=== PATIENT | female | born 1955 | race African-American/Black ===

== ENCOUNTER 2019-07-16 13:23 | Emergency (ER) | payer BC, OTHER ==
--- NOTE | 2019-07-16 13:38 | EDM.PDOC ---
ED HPI GENERAL MEDICAL PROBLEM - General Chief Complaint: Chest Pain Stated Complaint: CHEST PAIN Time Seen by Provider: 07/16/19 13:37 Source of Information: Reports: Patient History Limitations: Reports: No Limitations - History of Present Illness INITIAL COMMENTS - FREE TEXT/NARRATIVE: Patient is a 64-year-old female who is complaining of having substernal chest pain which is been ongoing for the past 8 days. Pain is worse when she takes deep breath and when she lays down at night. There is no exertional component of this. She does not feel short of breath diaphoretic nauseous. She has had no vomiting or any bloody or tarry stools. She has had no swelling to her calves or ankles. She has not had similar symptoms in the past. When this started 8 days ago she did have 1 shaking chill but none since. She has taken nothing for current symptoms. Duration: Day(s): (Eight) Location: Reports: Chest Quality: Reports: Sharp, Stabbing Severity: Severe Improves with: Reports: Movement Worsens with: Reports: Breathing, Other (Worse symptoms with laying down at night and rest.) Associated Symptoms: Reports: Chest Pain. 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 ED EXAM, GENERAL - Physical Exam Exam: See Below Free Text/Narrative:: Exam: See Below Exam Limited By: No Limitations Head: Atraumatic Neck: Normal Inspection. No: Carotid Bruit, Lymphadenopathy (R) Respiratory/Chest: No Respiratory Distress, Lungs Clear, Normal Breath Sounds, No Accessory Muscle Use. No: Chest Non-Tender Cardiovascular: Normal Peripheral Pulses, Regular Rate, Rhythm, No Edema, No JVD. No chest wall tenderness. GI/Abdominal: Normal Bowel Sounds, Tender. No: Non-Tender, Splenomegaly Back Exam: Normal Inspection. No: CVA Tenderness (R) Extremities: Normal Inspection. No: No Pedal Edema Neurological: Alert, Oriented, Normal Cognition Psychiatric: Normal Affect Skin Exam: Warm Lymphatic: No Adenopathy EKG INTERPRETATION Rhythm: NSR [place]: Normal QRS: Normal ST-T: Normal QT: Normal Course - Vital Signs Text/Narrative:: Patient's d-dimer was elevated at 1.04. Chest x-ray and other labs were within normal limits. Patient was sent for CTA of her chest which shows no sign of pulmonary embolus or pneumonia. I am discharging her home with a diagnosis of pleurisy. Since she is allergic to NSAIDs I will give her some prednisone. I will also give her a few Aurora's. Last Recorded V/S: Last Vital Signs Temp 36.7 C 07/16/19 13:27 Pulse 98 07/16/19 13:27 Resp 18 07/16/19 13:27 BP 148/98 H 07/16/19 13:27 Pulse Ox 100 07/16/19 13:27 - Orders/Labs/Meds Orders: Active Orders 24 hr Category Date Time Status Sodium Chloride 0.9% [Saline Flush] Med 07/16/19 15:13 Active 10 ml FLUSH ASDIRECTED PRN Sodium Chloride 0.9% [Saline Flush] Med 07/16/19 15:13 Active 2.5 ml FLUSH ASDIRECTED PRN Saline Lock Insert [OM.PC] Stat Oth 07/16/19 15:13 Ordered Medication Orders Sodium Chloride (Saline Flush) 10 ml FLUSH ASDIRECTED PRN PRN Reason: Keep Vein Open Sodium Chloride (Saline Flush) 2.5 ml FLUSH ASDIRECTED PRN PRN Reason: Keep Vein Open Labs: Laboratory Tests 07/16/19 07/16/19 07/16/19 Range/Units 13:30 13:30 13:30 WBC 5.52 (4.0-11.0) K/uL RBC 4.48 (4.30-5.90) M/uL Hgb 13.4 (12.0-16.0) g/dL Hct 41.4 (36.0-46.0) % MCV 92.4 (80.0-98.0) fL MCH 29.9 (27.0-32.0) pg MCHC 32.4 (31.0-37.0) g/dL RDW Std Deviation 49.5 (28.0-62.0) fl RDW Coeff of Girish 15 (11.0-15.0) % Plt Count 266 (150-400) K/uL MPV 9.90 (7.40-12.00) fL Neut % (Auto) 48.4 (48.0-80.0) % Lymph % (Auto) 39.7 (16.0-40.0) % [place] % (Auto) 9.4 (0.0-15.0) % Eos % (Auto) 2.0 (0.0-7.0) % Baso % (Auto) 0.5 (0.0-1.5) % Neut # (Auto) 2.7 (1.4-5.7) K/uL Lymph # (Auto) 2.2 (0.6-2.4) K/uL [place] # (Auto) 0.5 (0.0-0.8) K/uL Eos # (Auto) 0.1 (0.0-0.7) K/uL Baso # (Auto) 0.0 (0.0-0.1) K/uL Nucleated RBC % 0.0 /100WBC Nucleated RBCs # 0 K/uL D-Dimer, Quantitative 1.02 H (0.0-0.50) mg/L FEU Sodium 142 (136-145) mmol/L Potassium 3.9 (3.5-5.1) mmol/L Chloride 108 H (98-107) mmol/L Carbon Dioxide 27.4 (21.0-32.0) mmol/L BUN 18 (7.0-18.0) mg/dL Creatinine 0.9 (0.6-1.0) mg/dL Est Cr Clr Drug Dosing 46.55 mL/min Estimated GFR (MDRD) > 60.0 ml/min Glucose 91 (74-106) mg/dL Calcium 9.4 (8.5-10.1) mg/dL Total Bilirubin 0.5 (0.2-1.0) mg/dL AST 26 (15-37) IU/L ALT 25 (14-63) IU/L Alkaline Phosphatase 114 (46-116) U/L Troponin I < 0.050 (0.000-0.056) ng/mL Total Protein 7.5 (6.4-8.2) g/dL Albumin 3.7 (3.4-5.0) g/dL Globulin 3.8 (2.6-4.0) g/dL Albumin/Globulin Ratio 1.0 (0.9-1.6) Meds: Medications Generic Name Dose Route Start Last Admin Trade Name Freq PRN Reason Stop Dose Admin Sodium Chloride 10 ml 07/16/19 15:13 Saline Flush FLUSH ASDIRECTED PRN Keep Vein Open Sodium Chloride 2.5 ml 07/16/19 15:13 Saline Flush FLUSH ASDIRECTED PRN Keep Vein Open Discontinued Medications Generic Name Dose Route Start Last Admin Trade Name Freq PRN Reason Stop Dose Admin Iopamidol 50 ml 07/16/19 15:53 07/16/19 15:53 Isovue Multipack-370 (76%) IVPUSH 07/16/19 15:54 50 ml ONETIME STA Administration Departure - Departure Time of Disposition: 16:39 Disposition: Home, Self-Care 01 Condition: Good Clinical Impression: Atypical chest pain, Pleurisy Instructions: Pleurisy Referrals: PCP,None [Primary Care Provider] - Forms: ED Department Discharge Additional Instructions: The following information is given to patients seen in the emergency department who are being discharged to home. This information is to outline your options for follow-up care. We provide all patients seen in our emergency department with a follow-up referral. The need for follow-up, as well as the timing and circumstances, are variable depending upon the specifics of your emergency department visit. If you don't have a primary care physician on staff, we will provide you with a referral. We always advise you to contact your personal physician following an emergency department visit to inform them of the circumstance of the visit and for follow-up with them and/or the need for any referrals to a consulting specialist. The emergency department will also refer you to a specialist when appropriate. This referral assures that you have the opportunity for follow-up care with a specialist. All of these measure are taken in an effort to provide you with optimal care, which includes your follow-up. Under all circumstances we always encourage you to contact your private physician who remains a resource for coordinating your care. When calling for follow-up care, please make the office aware that this follow-up is from your recent emergency room visit. If for any reason you are refused follow-up, please contact the [facility] Emergency Department at and asked to speak to the emergency department charge nurse. Care Plan Goals: Return to ER if worse or any exertional symptoms. Follow-up with PCP if symptoms continue. Sepsis Event Note - Evaluation Sepsis Screening Result: No Definite Risk - Focused Exam Vital Signs: Vital Signs Temp Pulse Resp BP Pulse Ox 07/16/19 13:27 36.7 C 98 18 148/98 H 100 Date Exam was Performed: 07/16/19 Time Exam was Performed: 16:38 - My Orders Last 24 Hours: My Active Orders 07/16/19 15:13 Sodium Chloride 0.9% [Saline Flush] 10 ml FLUSH ASDIRECTED PRN Sodium Chloride 0.9% [Saline Flush] 2.5 ml FLUSH ASDIRECTED PRN Saline Lock Insert [OM.PC] Stat - Assessment/Plan Last 24 Hours: My Active Orders 07/16/19 15:13 Sodium Chloride 0.9% [Saline Flush] 10 ml FLUSH ASDIRECTED PRN Sodium Chloride 0.9% [Saline Flush] 2.5 ml FLUSH ASDIRECTED PRN Saline Lock Insert [OM.PC] Stat
[2019-07-16 14:22] LABS: BLOOD UREA NITROGEN,BUN 18 mg/dL (7.0-18.0); CARBON DIOXIDE,CO2 27.4 mmol/L (21.0-32.0); CHLORIDE,CL 108 mmol/L (98-107); GLUCOSE RANDOM 91 mg/dL (74-106); POTASSIUM,K 3.9 mmol/L (3.5-5.1); SODIUM,NA 142 mmol/L (136-145)
[2019-07-16] MEDS ORDERED: Sodium Chloride 0.9% 2.5 ML Syringe FLUSH PRN (15:13)
[2019-07-16] MEDS ORDERED: Sodium Chloride 0.9% 10 ML Syringe FLUSH PRN (15:13)
[2019-07-16] MEDS ORDERED: Iopamidol 755 MG/ML 500 ML Multipack Bottle IVPUSH STA ×2 (15:53→15:59)
--- NOTE | 2019-07-16 16:13 | CT ---
CT chest Technique: Multiple axial sections through the chest were obtained. Intravenous contrast was utilized. Study performed as a pulmonary angiogram protocol. Findings: Pulmonary arteries are well opacified. No filling defects are seen to indicate pulmonary embolism. Low density lesion is noted within the right lobe of the liver which has Hounsfield unit measurements of a cyst measuring 1.4 cm in size. No pericardial thickening is seen. Aorta shows no aneurysm. Mediastinum shows no adenopathy. Lungs are clear with no acute parenchymal change. Small portion of the lung base is not included on study. Bone window settings were reviewed shows no acute osseous finding. Impression: 1. No findings of pulmonary embolism. 2. Nothing acute is seen on other portions of the CT chest. Diagnostic code #1 This report was dictated in MDT
--- NOTE | 2019-07-16 16:22 | CR ---
Chest: 2 views of the chest were obtained. Comparison: No prior chest imaging is available. Heart size is normal. Tortuous thoracic aorta is seen. Lungs are clear with no acute parenchymal change. Mild scoliosis is noted within the spine. Minimal scattered degenerative change is seen. Impression: 1. Spine findings. 2. Nothing acute is appreciated on 2 view chest x-ray. Diagnostic code #2 This report was dictated in MDT
== END 2019-07-16 16:50 | disposition home or self-care (01) ==
LOC: MW.ED 13:23
DX: R09.1 Pleurisy (principal); Z88.6 Allergy status to analgesic agent
CPT/HCPCS: 36415; 71046; 71275; 80053; 84484; 85025; 85379; 93005; 99285; Q9967

== ENCOUNTER 2021-02-11 11:30 | Inpatient (IN) | payer BC ==
--- NOTE | 2021-02-11 11:45 | EDM.PDOC ---
ED HPI GENERAL MEDICAL PROBLEM - General Chief Complaint: Respiratory Problem Stated Complaint: SOB/ REFERRAL FROM [facility] Time Seen by Provider: 02/11/21 11:30 Source of Information: Reports: Patient History Limitations: Reports: No Limitations - History of Present Illness INITIAL COMMENTS - FREE TEXT/NARRATIVE: HISTORY AND PHYSICAL: History of present illness: Patient is a 65 year old female who presents to the ED with complaints of SOB since being diagnosed with COVID-19 10+ days ago. She states she was supposed to be off of quarantine yesterday, but doesn't feel any better. Continues to have SOB. Today while at [facility] with her PCP, they were concerned because her O2 was 89% on RA. She has a history of DVT, not currently on any blood thinners. Patient denies any fever, chills, headache, change in vision, syncope or near syncope. Denies any chest pain, back pain, shortness of breath or cough. Denies any abdominal pain, nausea, vomiting, diarrhea, constipation or dysuria. Has not noted any blood in urine or stool. Patient has been eating and drinking appropriately. No recent travel or sick contacts. Review of systems: As per history of present illness and below otherwise all systems reviewed and negative. Past medical history: As per history of present illness and as reviewed below otherwise noncontributory. Surgical history: As per history of present illness and as reviewed below otherwise noncontributory. Social history: See social history for further information Family history: As per history of present illness and as reviewed below otherwise noncontributory. Physical exam: General: Well developed and well nourished 65 year old black female. Alert and orientated x 3. Nontoxic in appearance and in no acute distress. Vital signs are stable and have been reviewed by me. Nursing notes were reviewed. HEENT: Atraumatic, normocephalic, pupils equal and reactive bilaterally, negative for conjunctival pallor or scleral icterus, mucous membranes dry, TMs normal bilaterally, throat clear, neck supple, nontender, trachea midline. No drooling or trismus noted. No meningeal signs. No hot potato voice noted. Lungs: Diminished bases to auscultation bilaterally. No wheezes, rales, or rhonchi. Chest nontender. Moderate work of breathing with activity, no accessory muscles used. Dry nonproductive cough is noted. Heart: S1S2, regular rate and rhythm without overt murmur, gallops, or rubs. No JVD. No peripheral edema Abdomen: Soft, nondistended, nontender. Normoactive bowel sounds. Negative for masses or costovertebral tenderness. Skin: Intact, warm, dry. No lesions or rashes noted. Hematologic: No petechiae or purpra. Mucosa appropriate color and normal nail bed color and refill. Extremities: Atraumatic, moves all extremities per self without difficulty or deficits, negative for cords or calf pain. Neurovascular unremarkable. Neuro: Awake, alert, oriented. Cranial nerves II through XII unremarkable. Cerebellum unremarkable. Motor and sensory unremarkable throughout. Exam nonfocal. Psychiatric: Mood and affect are appropriate. Normal thought process. Answering questions appropriately. Please note that the patient was seen and evaluated during the 2019 SARS-CoV-2 novel coronavirus pandemic period. Community viral transmission is ongoing at time of this encounter and the emergency department is operating under pandemic response procedures. Medical Decision Making: Patient is a 65 year old female who presents to the ED with known + COVID -19, whom is supposed to be off quarantine, but continued to feel SOB. She initially presented to [facility], but due to her oxygen saturation being 89% on RA, they recommended she come to the ED for further evaluation and possible admission. She states she hasn't felt any improvement and SOB has worsened in the past few days. Lung sounds are diminished bilaterally. Her oxygen upon arrival is 95% on RA but does appear dyspneic. Chest x-ray shows COVID pneumonia, bilateral. Elevated D.Dimer above 2.0, will do a CT chest to rule out PE. Vital signs remain stable. CT chest is suboptimal bolus timing. Pulmonary vascular density is higher than pulmonary arterial contrast density. No significant clot centrally. Peripheral vessels are nondiagnostic assessed. COVID-19 pneumonia. Multiple presumed cysts in the liver. Further characterization with contrast CT or ultrasound recommended if there is further clinical concern. Incomplete visualization of complex cystic lesion right kidney. Recommend ultrasound or contrast CT for further characterization. When patient is ambulatory in room, her oxygen drops to 86% on RA. When at rest, she does increase to 93-95% on RA. I have talked with the patient about today's findings, in addition to providing specific details for plan of care. Dr Albert was consulted on this case, she is agreeable to keeping this patient for further care and admission. Remdesivir ordered. Education completed. 1500: Dr Albert here to evaluate patient for admission. We will continue to monitor until patient is transferred to Med/Surg Diagnostics: CBC, CMP, Troponin, EKG, D.Dimer, COVID, CXR, CT Chest Therapeutics: Dexamethasone, Remdesivir Impression: COVID pneumonia Hypoxia Cystic liver, incidental finding Plan: Inpatient admission to Med/Surg Definitive disposition and diagnosis as appropriate pending reevaluation and review of above. - Related Data Allergies Allergy/AdvReac Type Severity Reaction Status Date / Time aspirin Allergy Swelling Verified 02/11/21 11:46 NSAIDS (Non-Steroidal Allergy Swelling Verified 02/11/21 11:46 Anti-Inflamma Home Meds: Home Meds . 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 ED EXAM, GENERAL - Physical Exam Exam: See Below (See dictation) Course - Vital Signs Last Recorded V/S: Last Vital Signs Temp 96.4 F L 02/11/21 11:44 Pulse 102 H 02/11/21 13:12 Resp 22 H 02/11/21 13:12 BP 135/98 H 02/11/21 13:12 Pulse Ox 95 02/11/21 13:12 - Orders/Labs/Meds Orders: Active Orders 24 hr Category Date Time Status Admission Status [Patient Status] [ADT] Stat ADT 02/11/21 14:59 Active UA RFX RAMIRO AND CULT IF INDIC [URIN] Stat Lab 02/11/21 11:34 Ordered Remdesivir 200 mg Med 02/11/21 15:30 Active Sodium Chloride 0.9% [Normal Saline] 250 ml IV ONETIME Medication Orders Remdesivir 200 mg/ Sodium (Chloride) 250 mls @ 250 mls/hr IV ONETIME ONE Stop: 02/11/21 16:29 Labs: Laboratory Tests 02/11/21 02/11/21 02/11/21 Range/Units 11:50 11:50 11:50 WBC 7.07 (4.0-11.0) K/uL RBC 4.73 (4.30-5.90) M/uL Hgb 14.1 (12.0-16.0) g/dL Hct 41.7 (36.0-46.0) % MCV 88.2 (80.0-98.0) fL MCH 29.8 (27.0-32.0) pg MCHC 33.8 (31.0-37.0) g/dL RDW Std Deviation 47.8 (28.0-62.0) fl RDW Coeff of Girish 15 (11.0-15.0) % Plt Count 386 (150-400) K/uL MPV 10.10 (7.40-12.00) fL Neut % (Auto) 77.1 (48.0-80.0) % Lymph % (Auto) 14.0 L (16.0-40.0) % [place] % (Auto) 7.6 (0.0-15.0) % Eos % (Auto) 1.0 (0.0-7.0) % Baso % (Auto) 0.3 (0.0-1.5) % Neut # (Auto) 5.5 (1.4-5.7) K/uL Lymph # (Auto) 1.0 (0.6-2.4) K/uL [place] # (Auto) 0.5 (0.0-0.8) K/uL Eos # (Auto) 0.1 (0.0-0.7) K/uL Baso # (Auto) 0.0 (0.0-0.1) K/uL Nucleated RBC % 0.0 /100WBC Nucleated RBCs # 0 K/uL D-Dimer, Quantitative 2.09 H (0.0-0.50) mg/L FEU Sodium 139 (136-145) mmol/L Potassium 3.8 (3.5-5.1) mmol/L Chloride 99 (98-107) mmol/L Carbon Dioxide 29.6 (21.0-32.0) mmol/L BUN 16 (7.0-18.0) mg/dL Creatinine 1.1 H (0.6-1.0) mg/dL Est Cr Clr Drug Dosing 52.81 mL/min Estimated GFR (MDRD) > 60.0 ml/min Glucose 138 H (74-106) mg/dL Calcium 8.8 (8.5-10.1) mg/dL Total Bilirubin 0.7 (0.2-1.0) mg/dL AST 110 H (15-37) IU/L ALT 77 H (14-63) IU/L Alkaline Phosphatase 148 H (46-116) U/L Troponin I < 0.050 (0.000-0.056) ng/mL Total Protein 7.3 (6.4-8.2) g/dL Albumin 2.9 L (3.4-5.0) g/dL Globulin 4.4 H (2.6-4.0) g/dL Albumin/Globulin Ratio 0.7 L (0.9-1.6) SARS-CoV-2 RNA (ENRIQUE) (NEGATIVE) 02/11/21 Range/Units 12:00 WBC (4.0-11.0) K/uL RBC (4.30-5.90) M/uL Hgb (12.0-16.0) g/dL Hct (36.0-46.0) % MCV (80.0-98.0) fL MCH (27.0-32.0) pg MCHC (31.0-37.0) g/dL RDW Std Deviation (28.0-62.0) fl RDW Coeff of Girish (11.0-15.0) % Plt Count (150-400) K/uL MPV (7.40-12.00) fL Neut % (Auto) (48.0-80.0) % Lymph % (Auto) (16.0-40.0) % [place] % (Auto) (0.0-15.0) % Eos % (Auto) (0.0-7.0) % Baso % (Auto) (0.0-1.5) % Neut # (Auto) (1.4-5.7) K/uL Lymph # (Auto) (0.6-2.4) K/uL [place] # (Auto) (0.0-0.8) K/uL Eos # (Auto) (0.0-0.7) K/uL Baso # (Auto) (0.0-0.1) K/uL Nucleated RBC % /100WBC Nucleated RBCs # K/uL D-Dimer, Quantitative (0.0-0.50) mg/L FEU Sodium (136-145) mmol/L Potassium (3.5-5.1) mmol/L Chloride (98-107) mmol/L Carbon Dioxide (21.0-32.0) mmol/L BUN (7.0-18.0) mg/dL Creatinine (0.6-1.0) mg/dL Est Cr Clr Drug Dosing mL/min Estimated GFR (MDRD) ml/min Glucose (74-106) mg/dL Calcium (8.5-10.1) mg/dL Total Bilirubin (0.2-1.0) mg/dL AST (15-37) IU/L ALT (14-63) IU/L Alkaline Phosphatase (46-116) U/L Troponin I (0.000-0.056) ng/mL Total Protein (6.4-8.2) g/dL Albumin (3.4-5.0) g/dL Globulin (2.6-4.0) g/dL Albumin/Globulin Ratio (0.9-1.6) SARS-CoV-2 RNA (ENRIQUE) POSITIVE H (NEGATIVE) Meds: Medications Generic Name Dose Route Start Last Admin Trade Name Comfort PRN Reason Stop Dose Admin Remdesivir 200 mg/ Sodium 250 mls @ 250 mls/hr 02/11/21 15:30 Chloride IV 02/11/21 16:29 ONETIME ONE Discontinued Medications Generic Name Dose Route Start Last Admin Trade Name Deoq PRN Reason Stop Dose Admin Dexamethasone 6 mg 02/11/21 15:05 Dexamethasone 4 Mg/Ml Sdv IVPUSH 02/11/21 15:06 ONETIME ONE Remdesivir 200 mg/ Sodium 250 mls @ 250 mls/hr 02/11/21 15:04 Chloride IV 02/11/21 15:05 ONETIME ONE Iopamidol 100 ml 02/11/21 14:10 02/11/21 14:10 Iopamidol 755 Mg/Ml 500 Ml Multipack Bottle IVPUSH 02/11/21 14:11 100 ml ONETIME STA Administration Departure - Departure Time of Disposition: 15:31 Disposition: Admitted As Inpatient 68 Clinical Impression: Pneumonia due to COVID-19 virus, Hypoxia - Discharge Information Referrals: PCP,None [Primary Care Provider] - Forms: ED Department Discharge Sepsis Event Note (ED) - Focused Exam Vital Signs: Vital Signs Temp Pulse Resp BP Pulse Ox 02/11/21 13:12 102 H 22 H 135/98 H 95 02/11/21 11:44 96.4 F L 132 H 22 H 140/89 95 - My Orders Last 24 Hours: My Active Orders 02/11/21 11:34 UA RFX RAMIRO AND CULT IF INDIC [URIN] Stat 02/11/21 14:59 Admission Status [Patient Status] [ADT] Stat 02/11/21 15:30 Remdesivir 200 mg Sodium Chloride 0.9% [Normal Saline] 250 ml IV ONETIME - Assessment/Plan Last 24 Hours: My Active Orders 02/11/21 11:34 UA RFX RAMIRO AND CULT IF INDIC [URIN] Stat 02/11/21 14:59 Admission Status [Patient Status] [ADT] Stat 02/11/21 15:30 Remdesivir 200 mg Sodium Chloride 0.9% [Normal Saline] 250 ml IV ONETIME
--- NOTE | 2021-02-11 12:03 | PCM.EKG ---
#1 Interpretation EKG Interpretation Comments: EKG performed 02/11/2021 shows sinus tachycardia, HR 122,ME 145,axis -18, comparedto07/16/2019 QRS configuration and T configuration are not exactly the same and may be due to lead palcement and artirfact on this tracing. Impression - no obvious acute injury
--- NOTE | 2021-02-11 12:32 | CR ---
INDICATION: Shortness of breath; COVID-19 positive. COMPARISON: Two-view chest July 16, 2019. TECHNIQUE: Portable AP chest. FINDINGS: Normal size cardiac silhouette. Patchy areas of alveolar consolidation diffusely involving both lungs; diagnostic of COVID-19 pneumonia. No pneumothorax or pleural effusion. IMPRESSION: COVID-19 pneumonia bilateral. Dictated by Estephanie Collier MD @ 02/11/2021 12:31:45 PM (Electronically Signed)
[2021-02-11 12:52] LABS: BLOOD UREA NITROGEN,BUN 16 mg/dL (7.0-18.0); CARBON DIOXIDE,CO2 29.6 mmol/L (21.0-32.0); CHLORIDE,CL 99 mmol/L (98-107); GLUCOSE RANDOM 138 mg/dL (74-106); POTASSIUM,K 3.8 mmol/L (3.5-5.1); SODIUM,NA 139 mmol/L (136-145)
[2021-02-11] MEDS ORDERED: Iopamidol 755 MG/ML 500 ML Multipack Bottle IVPUSH STA (14:10)
--- NOTE | 2021-02-11 14:38 | CT ---
INDICATION: Shortness of breath and cough. History of previous blood clots. Elevated D-dimer. Positive COVID test. COMPARISON: Plain film same date. TECHNIQUE: 100 mL Isovue-370 IV contrast. FINDINGS: Suboptimal bolus timing. Pulmonary vascular density is higher than pulmonary arterial contrast density. No significant clot centrally. Peripheral vessels are nondiagnostic assessed. Aortic caliber is normal. A 13 mm low-attenuation focus segment 7 subdiaphragmatic right liver. Multiple larger more obviously cystic lesions in the left liver. Coarse calcification central left liver. Incomplete visualization complex cystic lesion ventral lateral right kidney. Bilateral diffuse ground-glass and patchy reticular opacities in both lungs consistent with COVID-19 pneumonia. No mass or nodule. No pneumothorax or effusion. IMPRESSION: 1. Nondiagnostic study for pulmonary embolism due to bolus timing. 2. COVID-19 pneumonia. 3. Multiple presumed cysts in the liver. Further characterization with contrast CT or ultrasound recommended if there is further clinical concern. 4. Incomplete visualization of complex cystic lesion right kidney. Recommend ultrasound or contrast CT for further characterization. Please note that all CT scans at this facility use dose modulation, iterative reconstruction, and/or weight-based dosing when appropriate to reduce radiation dose to as low as reasonably achievable. Dictated by Ady Castro MD @ 02/11/2021 2:37:50 PM (Electronically Signed)
[2021-02-11] MEDS ORDERED: REMDESIVIR 200 MG in Sodium Chloride 0.9% 250 ML IV ONE (15:04)
[2021-02-11] MEDS ORDERED: Dexamethasone 4 MG/ML SDV IVPUSH ONE (15:05)
[2021-02-11] MEDS: REMDESIVIR 200 MG in Sodium Chloride 0.9% 250 ML IV ONE ×2 (15:33→15:34)
[2021-02-11] MEDS ORDERED: Ondansetron 4 MG/2 ML SDV IVPUSH PRN (15:43)
[2021-02-11] MEDS ORDERED: Albuterol/Ipratropium 3.0-0.5 MG/3 ML Neb Soln NEB PRN (15:43)
[2021-02-11] MEDS ORDERED: Acetaminophen 325 MG Tab PO PRN (15:43)
--- NOTE | 2021-02-11 15:43 | PCM.HP.2 ---
H&P History of Present Illness - General Date of Service: 02/11/21 Admit Problem/Dx: Admission Diagnosis/Problem Admission Diagnosis/Problem Hypoxia - History of Present Illness Initial Comments - Free Text/Narative: 65-year-old female with a history of provoked DVT presents to the ER complaining of fatigue and worsening shortness of breath positive Covid test 10 days ago. Patient states she completed quarantine yesterday but she has become progressively more short of breath. Patient has a nonproductive cough which is worsened. Patient states she was seen by her primary care provider at [facility] and was sent to the ER for concerns of O2 saturation of 89%. Patient denies fever, chills, abdominal pain, diarrhea vomiting, chest pain, palpitations or changes in taste or smell. Patient denies changes in appetite. As per patient, in 2013 or 2014 patient injured her foot requiring surgery and later developed a DVT. Patient is currently not anticoagulated. Patient also has a history of hypertension and hypercholesterolemia for which she takes hydrochlorothiazide and a statin. ER course: Patient presents with decreased breath sounds at the bases O2 saturation of 95% on room air but appeared dyspneic. With ambulation patient's oxygen dropped to 86% on room air. CXR shows Covid pneumonia bilaterally. 0.0. CT angio is suboptimal for embolism. Bilateral: Pneumonia. Multiple presumed cysts in the liver with recommended follow-up contrast CT ultrasound. Incomplete visualization of complex cystic lesion right kidney recommendation for ultrasound or contrast CT. EKG: Sinus tachycardia, pulse 122, no acute ischemic injury. Vital signs: T 96.4, P102, RR 22, BP 135/98, 95% O2 saturation. WBC 7, Hgb 14, platelet 386, D- dimer 2.09, sodium 139, potassium 3.8, chloride 99, bicarb 29.6, BUN 16, creati nine 1.1, glucose 138, calcium 8.8, AST 110, ALT 77, alk phos 148, troponin negative. SARS-CoV-2 positive. Therapy: Patient received dexamethasone, first dose of remdesivir. Past medical history: History of provoked DVT, hypertension, hypercholesterolemia. Medications: Pravastatin, hydrochlorothiazide. Allergies: Aspirin, NSAIDs, opiates. Social history: Denies smoking. Denies illicit drug use. Occasionally drinks wine. 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 CODE STATUS: Full code - Related Data Allergies/Adverse Reactions: Allergies Allergy/AdvReac Type Severity Reaction Status Date / Time aspirin Allergy Swelling Verified 02/11/21 11:46 NSAIDS (Non-Steroidal Allergy Swelling Verified 02/11/21 11:46 Anti-Inflamma Home Medications: Home Meds . [No Known Home Meds] 02/11/21 [History] Past Medical History Cardiovascular History: Reports: High Cholesterol [employer] History: Reports: Ectopic - Infectious Disease History Infectious Disease History: Reports: Mumps - Past Surgical History Female Surgical History: Reports: Hysterectomy Musculoskeletal Surgical History: Reports: Other (See Below) Other Musculoskeletal Surgeries/Procedures:: right foot surgery Social & Family History - Family History Family Medical History: No Pertinent Family History - Tobacco Use Second Hand Smoke Exposure: No - Caffeine Use Caffeine Use: Reports: None - Recreational Drug Use Recreational Drug Use: No H&P Review of Systems - Review of Systems: Review Of Systems: See Below General: Reports: Weakness, Fatigue. Denies: Fever, Chills HEENT: Denies: Headaches, Sore Throat Pulmonary: Reports: Shortness of Breath, Cough. Denies: Wheezing, Pleuritic Chest Pain, Sputum Cardiovascular: Reports: Dyspnea on Exertion. Denies: Chest Pain, Palpitations, Edema Gastrointestinal: Denies: Abdominal Pain, Constipation, Diarrhea, Decreased Appetite, Nausea, Vomiting Genitourinary: Denies: Dysuria, Frequency, Burning Musculoskeletal: Denies: Leg Pain, Joint Pain, Joint Swelling Skin: Denies: Cyanosis, Rash Psychiatric: Denies: Confusion Neurological: Denies: Confusion, Dizziness, Headache, Numbness, Paresthesia Hematologic/Lymphatic: Denies: Anemia, Easy Bleeding, Easy Bruising Exam - Exam Exam: See Below - Vital Signs Vital Signs: Last Vital Signs Temp 96.4 F L 02/11/21 11:44 Pulse 102 H 02/11/21 13:12 Resp 22 H 02/11/21 13:12 BP 135/98 H 02/11/21 13:12 Pulse Ox 95 02/11/21 13:12 Weight: 220 lb - Exam General: Alert, Oriented, Cooperative HEENT: Conjunctiva Clear, EACs Clear Neck: Supple, Trachea Midline Lungs: Decreased Breath Sounds. No: Wheezing Cardiovascular: Regular Rate, Regular Rhythm GI/Abdominal Exam: Normal Bowel Sounds, Soft, Non-Tender, No Organomegaly. No: Rebound Back Exam: Normal Inspection. No: CVA Tenderness (L), CVA Tenderness (R) Extremities: Normal Inspection, Normal Range of Motion, Non-Tender, No Pedal Edema. No: Dameon's Sign Peripheral Pulses: 2+: Dorsalis Pedis (L), Dorsalis Pedis (R) Skin: Warm, Dry, Intact Neurological: Cranial Nerves Intact, Reflexes Equal Bilateral, Strength Equal Bilateral, Normal Speech, Normal Tone - Patient Data Lab Results Last 24 hrs: Laboratory Results - last 24 hr 02/11/21 02/11/21 02/11/21 Range/Units 11:50 11:50 11:50 WBC 7.07 (4.0-11.0) K/uL RBC 4.73 (4.30-5.90) M/uL Hgb 14.1 (12.0-16.0) g/dL Hct 41.7 (36.0-46.0) % MCV 88.2 (80.0-98.0) fL MCH 29.8 (27.0-32.0) pg MCHC 33.8 (31.0-37.0) g/dL RDW Std Deviation 47.8 (28.0-62.0) fl RDW Coeff of Girish 15 (11.0-15.0) % Plt Count 386 (150-400) K/uL MPV 10.10 (7.40-12.00) fL Neut % (Auto) 77.1 (48.0-80.0) % Lymph % (Auto) 14.0 L (16.0-40.0) % Faulkner % (Auto) 7.6 (0.0-15.0) % Eos % (Auto) 1.0 (0.0-7.0) % Baso % (Auto) 0.3 (0.0-1.5) % Neut # (Auto) 5.5 (1.4-5.7) K/uL Lymph # (Auto) 1.0 (0.6-2.4) K/uL Faulkner # (Auto) 0.5 (0.0-0.8) K/uL Eos # (Auto) 0.1 (0.0-0.7) K/uL Baso # (Auto) 0.0 (0.0-0.1) K/uL Nucleated RBC % 0.0 /100WBC Nucleated RBCs # 0 K/uL D-Dimer, Quantitative 2.09 H (0.0-0.50) mg/L FEU Sodium 139 (136-145) mmol/L Potassium 3.8 (3.5-5.1) mmol/L Chloride 99 (98-107) mmol/L Carbon Dioxide 29.6 (21.0-32.0) mmol/L BUN 16 (7.0-18.0) mg/dL Creatinine 1.1 H (0.6-1.0) mg/dL Est Cr Clr Drug Dosing 52.81 mL/min Estimated GFR (MDRD) > 60.0 ml/min Glucose 138 H (74-106) mg/dL Calcium 8.8 (8.5-10.1) mg/dL Total Bilirubin 0.7 (0.2-1.0) mg/dL AST 110 H (15-37) IU/L ALT 77 H (14-63) IU/L Alkaline Phosphatase 148 H (46-116) U/L Troponin I < 0.050 (0.000-0.056) ng/mL Total Protein 7.3 (6.4-8.2) g/dL Albumin 2.9 L (3.4-5.0) g/dL Globulin 4.4 H (2.6-4.0) g/dL Albumin/Globulin Ratio 0.7 L (0.9-1.6) SARS-CoV-2 RNA (ENRIQUE) (NEGATIVE) 02/11/21 Range/Units 12:00 WBC (4.0-11.0) K/uL RBC (4.30-5.90) M/uL Hgb (12.0-16.0) g/dL Hct (36.0-46.0) % MCV (80.0-98.0) fL MCH (27.0-32.0) pg MCHC (31.0-37.0) g/dL RDW Std Deviation (28.0-62.0) fl RDW Coeff of Girish (11.0-15.0) % Plt Count (150-400) K/uL MPV (7.40-12.00) fL Neut % (Auto) (48.0-80.0) % Lymph % (Auto) (16.0-40.0) % Faulkner % (Auto) (0.0-15.0) % Eos % (Auto) (0.0-7.0) % Baso % (Auto) (0.0-1.5) % Neut # (Auto) (1.4-5.7) K/uL Lymph # (Auto) (0.6-2.4) K/uL Faulkner # (Auto) (0.0-0.8) K/uL Eos # (Auto) (0.0-0.7) K/uL Baso # (Auto) (0.0-0.1) K/uL Nucleated RBC % /100WBC Nucleated RBCs # K/uL D-Dimer, Quantitative (0.0-0.50) mg/L FEU Sodium (136-145) mmol/L Potassium (3.5-5.1) mmol/L Chloride (98-107) mmol/L Carbon Dioxide (21.0-32.0) mmol/L BUN (7.0-18.0) mg/dL Creatinine (0.6-1.0) mg/dL Est Cr Clr Drug Dosing mL/min Estimated GFR (MDRD) ml/min Glucose (74-106) mg/dL Calcium (8.5-10.1) mg/dL Total Bilirubin (0.2-1.0) mg/dL AST (15-37) IU/L ALT (14-63) IU/L Alkaline Phosphatase (46-116) U/L Troponin I (0.000-0.056) ng/mL Total Protein (6.4-8.2) g/dL Albumin (3.4-5.0) g/dL Globulin (2.6-4.0) g/dL Albumin/Globulin Ratio (0.9-1.6) SARS-CoV-2 RNA (ENRIQUE) POSITIVE H (NEGATIVE) Result Diagrams: 02/11/21 11:50 02/11/21 11:50 Sepsis Event Note - Evaluation Sepsis Screening Result: No Definite Risk - Focused Exam Vital Signs: Vital Signs Temp Pulse Resp BP Pulse Ox 02/11/21 13:12 102 H 22 H 135/98 H 95 02/11/21 11:44 96.4 F L 132 H 22 H 140/89 95 - Problem List (1) History of DVT (deep vein thrombosis) SNOMED Code(s): 681053951 ICD Code: Z86.718 - PERSONAL HISTORY OF OTHER VENOUS THROMBOSIS AND EMBOLISM Status: Acute Current Visit: Yes (2) Pneumonia due to COVID-19 virus SNOMED Code(s): 727266834563428434 ICD Code: U07.1 - COVID-19; J12.82 - PNEUMONIA DUE TO CORONAVIRUS DISEASE 2 019 Status: Acute Current Visit: Yes Problem List Initiated/Reviewed/Updated: Yes Orders Last 24hrs: Active Orders 24 hr Category Date Time Status Admission Status [Patient Status] [ADT] Stat ADT 02/11/21 14:59 Active UA RFX RAMIRO AND CULT IF INDIC [URIN] Stat Lab 02/11/21 11:34 Ordered Remdesivir 200 mg Med 02/11/21 15:30 Active Sodium Chloride 0.9% [Normal Saline] 250 ml IV ONETIME Medication Orders Remdesivir 200 mg/ Sodium (Chloride) 250 mls @ 250 mls/hr IV ONETIME ONE Stop: 02/11/21 16:29 Last Admin: 02/11/21 15:34 Dose: 250 mls/hr Documented by: NIC Assessment/Plan Comment:: Covid pneumonia: -Acetaminophen 650 mg po q4hr prn -DuoNebs q4hr prn -Combivent q4hr -Dexamethasone 6 mg daily -Dextromethorphan/guaifenesin q4hr prn -Lovenox 40 mg bid for intermediate anticoagulation -Zofran 4 mg q4hr prn -Pantoprazole 40 mg daily -Remdesivir: First dose received today in the ER. 100 mg daily beginning 02/12/2021 x 4doses. -Supplement oxygen as needed. Incentive spirometry. Prone positioning.
[2021-02-11] MEDS: Albuterol/Ipratropium 4 GM Inhalation Spray INH SCH ×2 (17:59→23:48)
[2021-02-11] MEDS: Enoxaparin 40 MG/0.4 ML Syringe SUBCUT SCH (21:00)
[2021-02-12] MEDS: Albuterol/Ipratropium 4 GM Inhalation Spray INH SCH ×4 (06:21→23:21)
[2021-02-12 07:00] LABS: BLOOD UREA NITROGEN,BUN 18 mg/dL (7.0-18.0); CARBON DIOXIDE,CO2 29.8 mmol/L (21.0-32.0); CHLORIDE,CL 103 mmol/L (98-107); GLUCOSE RANDOM 115 mg/dL (74-106); POTASSIUM,K 4.4 mmol/L (3.5-5.1); SODIUM,NA 142 mmol/L (136-145)
[2021-02-12] MEDS: Pantoprazole 40 MG in Sodium Chloride 0.9% 10 ML IV SCH (08:35)
[2021-02-12] MEDS: Dexamethasone 10 MG/ML SDV IVPUSH SCH (08:37)
[2021-02-12] MEDS: Enoxaparin 40 MG/0.4 ML Syringe SUBCUT SCH ×2 (08:38→21:21)
[2021-02-12] MEDS ORDERED: Pantoprazole 40 MG Vial IV SCH (09:00)
--- NOTE | 2021-02-12 12:04 | PCM.PN ---
- General Info Date of Service: 02/12/21 Admission Dx/Problem (Free Text): Admission Diagnosis/Problem Admission Diagnosis/Problem Hypoxia Subjective Update: Patient is room air but endorses severe fatigue and nonproductive cough. Patient denies abdominal pain, chest pain, palpitations, dizziness, lightheadedness, diarrhea. - Review of Systems General: Denies: Fever, Chills HEENT: Denies: Sinus Congestion, Sore Throat Pulmonary: Reports: Shortness of Breath, Cough. Denies: Pleuritic Chest Pain, Sputum Cardiovascular: Denies: Chest Pain, Palpitations Gastrointestinal: Denies: Abdominal Pain, Constipation, Diarrhea, Nausea, Vomiting Genitourinary: Denies: Dysuria, Frequency Musculoskeletal: Denies: Leg Pain Skin: Denies: Rash Neurological: Reports: No Symptoms - Patient Data Vitals - Most Recent: Last Vital Signs Temp 96.8 F L 02/12/21 08:00 Pulse 82 02/12/21 08:00 Resp 24 H 02/12/21 08:00 BP 104/59 L 02/12/21 08:00 Pulse Ox 97 02/12/21 08:00 Weight - Most Recent: 223 lb 1.725 oz I&O - Last 24 Hours: Intake & Output 02/11/21 02/12/21 02/12/21 22:59 06:59 14:59 Intake Total 200 Output Total 0 Balance 200 Lab Results Last 24 Hours: Laboratory Results - last 24 hr 02/11/21 02/11/21 02/11/21 Range/Units 11:50 11:50 11:50 WBC 7.07 (4.0-11.0) K/uL RBC 4.73 (4.30-5.90) M/uL Hgb 14.1 (12.0-16.0) g/dL Hct 41.7 (36.0-46.0) % MCV 88.2 (80.0-98.0) fL MCH 29.8 (27.0-32.0) pg MCHC 33.8 (31.0-37.0) g/dL RDW Std Deviation 47.8 (28.0-62.0) fl RDW Coeff of Girish 15 (11.0-15.0) % Plt Count 386 (150-400) K/uL MPV 10.10 (7.40-12.00) fL Neut % (Auto) 77.1 (48.0-80.0) % Lymph % (Auto) 14.0 L (16.0-40.0) % Winkler % (Auto) 7.6 (0.0-15.0) % Eos % (Auto) 1.0 (0.0-7.0) % Baso % (Auto) 0.3 (0.0-1.5) % Neut # (Auto) 5.5 (1.4-5.7) K/uL Lymph # (Auto) 1.0 (0.6-2.4) K/uL Winkler # (Auto) 0.5 (0.0-0.8) K/uL Eos # (Auto) 0.1 (0.0-0.7) K/uL Baso # (Auto) 0.0 (0.0-0.1) K/uL Nucleated RBC % 0.0 /100WBC Nucleated RBCs # 0 K/uL D-Dimer, Quantitative 2.09 H (0.0-0.50) mg/L FEU Sodium 139 (136-145) mmol/L Potassium 3.8 (3.5-5.1) mmol/L Chloride 99 (98-107) mmol/L Carbon Dioxide 29.6 (21.0-32.0) mmol/L BUN 16 (7.0-18.0) mg/dL Creatinine 1.1 H (0.6-1.0) mg/dL Est Cr Clr Drug Dosing 52.81 mL/min Estimated GFR (MDRD) > 60.0 ml/min Glucose 138 H (74-106) mg/dL Calcium 8.8 (8.5-10.1) mg/dL Total Bilirubin 0.7 (0.2-1.0) mg/dL Direct Bilirubin (0.0-0.5) mg/dL AST 110 H (15-37) IU/L ALT 77 H (14-63) IU/L Alkaline Phosphatase 148 H (46-116) U/L Troponin I < 0.050 (0.000-0.056) ng/mL Total Protein 7.3 (6.4-8.2) g/dL Albumin 2.9 L (3.4-5.0) g/dL Globulin 4.4 H (2.6-4.0) g/dL Albumin/Globulin Ratio 0.7 L (0.9-1.6) Urine Color Urine Appearance Urine pH (5.0-8.0) Ur Specific [place] (1.001-1.035) Urine Protein (NEGATIVE) mg/dL Urine Glucose (UA) (NEGATIVE) mg/dL Urine Ketones (NEGATIVE) mg/dL Urine Occult Blood (NEGATIVE) Urine Nitrite (NEGATIVE) Urine Bilirubin (NEGATIVE) Urine Urobilinogen (<2.0) EU/dL Ur Leukocyte Esterase (NEGATIVE) Urine RBC (0-2/HPF) Urine WBC (0-5/HPF) Ur Epithelial Cells (NONE-FEW) Urine Bacteria (NEGATIVE) SARS-CoV-2 RNA (ENRIQUE) (NEGATIVE) 02/11/21 02/11/21 02/12/21 Range/Units 12:00 21:00 05:56 WBC 5.80 (4.0-11.0) K/uL RBC 4.41 (4.30-5.90) M/uL Hgb 13.0 (12.0-16.0) g/dL Hct 38.8 (36.0-46.0) % MCV 88.0 (80.0-98.0) fL MCH 29.5 (27.0-32.0) pg MCHC 33.5 (31.0-37.0) g/dL RDW Std Deviation 47.6 (28.0-62.0) fl RDW Coeff of Girish 15 (11.0-15.0) % Plt Count 427 H (150-400) K/uL MPV 10.30 (7.40-12.00) fL Neut % (Auto) 76.1 (48.0-80.0) % Lymph % (Auto) 15.9 L (16.0-40.0) % Winkler % (Auto) 7.8 (0.0-15.0) % Eos % (Auto) 0.0 (0.0-7.0) % Baso % (Auto) 0.2 (0.0-1.5) % Neut # (Auto) 4.4 (1.4-5.7) K/uL Lymph # (Auto) 0.9 (0.6-2.4) K/uL Winkler # (Auto) 0.5 (0.0-0.8) K/uL Eos # (Auto) 0.0 (0.0-0.7) K/uL Baso # (Auto) 0.0 (0.0-0.1) K/uL Nucleated RBC % 0.0 /100WBC Nucleated RBCs # 0 K/uL D-Dimer, Quantitative (0.0-0.50) mg/L FEU Sodium (136-145) mmol/L Potassium (3.5-5.1) mmol/L Chloride (98-107) mmol/L Carbon Dioxide (21.0-32.0) mmol/L BUN (7.0-18.0) mg/dL Creatinine (0.6-1.0) mg/dL Est Cr Clr Drug Dosing mL/min Estimated GFR (MDRD) ml/min Glucose (74-106) mg/dL Calcium (8.5-10.1) mg/dL Total Bilirubin (0.2-1.0) mg/dL Direct Bilirubin (0.0-0.5) mg/dL AST (15-37) IU/L ALT (14-63) IU/L Alkaline Phosphatase (46-116) U/L Troponin I (0.000-0.056) ng/mL Total Protein (6.4-8.2) g/dL Albumin (3.4-5.0) g/dL Globulin (2.6-4.0) g/dL Albumin/Globulin Ratio (0.9-1.6) Urine Color ORANGE Urine Appearance CLEAR Urine pH 5.5 (5.0-8.0) Ur Specific [place] 1.010 (1.001-1.035) Urine Protein 30 H (NEGATIVE) mg/dL Urine Glucose (UA) NEGATIVE (NEGATIVE) mg/dL Urine Ketones TRACE H (NEGATIVE) mg/dL Urine Occult Blood TRACE-INTACT H (NEGATIVE) Urine Nitrite NEGATIVE (NEGATIVE) Urine Bilirubin NEGATIVE (NEGATIVE) Urine Urobilinogen 2.0 H (<2.0) EU/dL Ur Leukocyte Esterase NEGATIVE (NEGATIVE) Urine RBC 0-2 (0-2/HPF) Urine WBC 0-2 (0-5/HPF) Ur Epithelial Cells RARE (NONE-FEW) Urine Bacteria FEW (NEGATIVE) SARS-CoV-2 RNA (ENRIQUE) POSITIVE H (NEGATIVE) 02/12/21 Range/Units 05:56 WBC (4.0-11.0) K/uL RBC (4.30-5.90) M/uL Hgb (12.0-16.0) g/dL Hct (36.0-46.0) % MCV (80.0-98.0) fL MCH (27.0-32.0) pg MCHC (31.0-37.0) g/dL RDW Std Deviation (28.0-62.0) fl RDW Coeff of Girish (11.0-15.0) % Plt Count (150-400) K/uL MPV (7.40-12.00) fL Neut % (Auto) (48.0-80.0) % Lymph % (Auto) (16.0-40.0) % Winkler % (Auto) (0.0-15.0) % Eos % (Auto) (0.0-7.0) % Baso % (Auto) (0.0-1.5) % Neut # (Auto) (1.4-5.7) K/uL Lymph # (Auto) (0.6-2.4) K/uL Winkler # (Auto) (0.0-0.8) K/uL Eos # (Auto) (0.0-0.7) K/uL Baso # (Auto) (0.0-0.1) K/uL Nucleated RBC % /100WBC Nucleated RBCs # K/uL D-Dimer, Quantitative (0.0-0.50) mg/L FEU Sodium 142 (136-145) mmol/L Potassium 4.4 (3.5-5.1) mmol/L Chloride 103 (98-107) mmol/L Carbon Dioxide 29.8 (21.0-32.0) mmol/L BUN 18 (7.0-18.0) mg/dL Creatinine 0.7 (0.6-1.0) mg/dL Est Cr Clr Drug Dosing 82.98 mL/min Estimated GFR (MDRD) > 60.0 ml/min Glucose 115 H (74-106) mg/dL Calcium 8.8 (8.5-10.1) mg/dL Total Bilirubin 0.5 (0.2-1.0) mg/dL Direct Bilirubin 0.20 (0.0-0.5) mg/dL AST 85 H (15-37) IU/L ALT 68 H (14-63) IU/L Alkaline Phosphatase 131 H (46-116) U/L Troponin I (0.000-0.056) ng/mL Total Protein 6.5 (6.4-8.2) g/dL Albumin 2.5 L (3.4-5.0) g/dL Globulin 4.0 (2.6-4.0) g/dL Albumin/Globulin Ratio 0.6 L (0.9-1.6) Urine Color Urine Appearance Urine pH (5.0-8.0) Ur Specific [place] (1.001-1.035) Urine Protein (NEGATIVE) mg/dL Urine Glucose (UA) (NEGATIVE) mg/dL Urine Ketones (NEGATIVE) mg/dL Urine Occult Blood (NEGATIVE) Urine Nitrite (NEGATIVE) Urine Bilirubin (NEGATIVE) Urine Urobilinogen (<2.0) EU/dL Ur Leukocyte Esterase (NEGATIVE) Urine RBC (0-2/HPF) Urine WBC (0-5/HPF) Ur Epithelial Cells (NONE-FEW) Urine Bacteria (NEGATIVE) SARS-CoV-2 RNA (ENRIQUE) (NEGATIVE) Med Orders - Current: Current Medications Acetaminophen (Acetaminophen 325 Mg Tab) 650 mg PO Q6H PRN PRN Reason: Pain (Mild 1-3)/fever Albuterol/Ipratropium (Albuterol/Ipratropium 3.0-0.5 Mg/3 Ml Neb Soln) 3 ml NEB Q4HRRT PRN PRN Reason: Shortness Of Breath/wheezing Albuterol/Ipratropium (Albuterol/Ipratropium 4 Gm Inhalation Lund) 0 gm INH QID [facility] Last Admin: 02/12/21 06:21 Dose: 1 puff Documented by: Dexamethasone (Dexamethasone 10 Mg/Ml Sdv) 6 mg IVPUSH DAILY [facility] Stop: 02/21/21 09:01 Last Admin: 02/12/21 08:37 Dose: 6 mg Documented by: Enoxaparin Sodium (Enoxaparin 40 Mg/0.4 Ml Syringe) 40 mg SUBCUT Q12HR [facility] Last Admin: 02/12/21 08:38 Dose: 40 mg Documented by: Pantoprazole Sodium 40 mg/ (Sodium Chloride) 10 mls @ 300 mls/hr IV DAILY [facility] Last Admin: 02/12/21 08:35 Dose: 300 mls/hr Documented by: Remdesivir 100 mg/ Sodium (Chloride) 100 mls @ 100 mls/hr IV Q24H [facility] Stop: 02/15/21 16:29 Ondansetron HCl (Ondansetron 4 Mg/2 Ml Sdv) 4 mg IVPUSH Q4H PRN PRN Reason: Nausea/Vomiting Discontinued Medications Dexamethasone (Dexamethasone 4 Mg/Ml Sdv) 6 mg IVPUSH ONETIME ONE Stop: 02/11/21 15:06 Last Admin: 02/11/21 15:32 Dose: 6 mg Documented by: Remdesivir 200 mg/ Sodium (Chloride) 250 mls @ 250 mls/hr IV ONETIME ONE Stop: 02/11/21 15:05 Last Admin: 02/11/21 15:34 Dose: Not Given Documented by: Remdesivir 200 mg/ Sodium (Chloride) 250 mls @ 250 mls/hr IV ONETIME ONE Stop: 02/11/21 16:29 Last Admin: 02/11/21 15:34 Dose: 250 mls/hr Documented by: Iopamidol (Iopamidol 755 Mg/Ml 500 Ml Multipack Bottle) 100 ml IVPUSH ONETIME STA Stop: 02/11/21 14:11 Last Admin: 02/11/21 14:10 Dose: 100 ml Documented by: - Exam General: Alert, Oriented HEENT: Pupils Equal, Pupils Reactive Neck: Supple, Trachea Midline Lungs: Decreased Breath Sounds, Wheezing Cardiovascular: Regular Rate, Regular Rhythm GI/Abdominal Exam: Normal Bowel Sounds, Soft, Non-Tender Extremities: Normal Inspection, No Pedal Edema. No: Dameon's Sign Peripheral Pulses: 2+: Dorsalis Pedis (L), Dorsalis Pedis (R) Skin: Warm, Dry, Intact Neurological: No New Focal Deficit - Patient Data Lab Results Last 24 hrs: Laboratory Results - last 24 hr 02/11/21 02/11/21 02/11/21 Range/Units 11:50 11:50 11:50 WBC 7.07 (4.0-11.0) K/uL RBC 4.73 (4.30-5.90) M/uL Hgb 14.1 (12.0-16.0) g/dL Hct 41.7 (36.0-46.0) % MCV 88.2 (80.0-98.0) fL MCH 29.8 (27.0-32.0) pg MCHC 33.8 (31.0-37.0) g/dL RDW Std Deviation 47.8 (28.0-62.0) fl RDW Coeff of Girish 15 (11.0-15.0) % Plt Count 386 (150-400) K/uL MPV 10.10 (7.40-12.00) fL Neut % (Auto) 77.1 (48.0-80.0) % Lymph % (Auto) 14.0 L (16.0-40.0) % Winkler % (Auto) 7.6 (0.0-15.0) % Eos % (Auto) 1.0 (0.0-7.0) % Baso % (Auto) 0.3 (0.0-1.5) % Neut # (Auto) 5.5 (1.4-5.7) K/uL Lymph # (Auto) 1.0 (0.6-2.4) K/uL Winkler # (Auto) 0.5 (0.0-0.8) K/uL Eos # (Auto) 0.1 (0.0-0.7) K/uL Baso # (Auto) 0.0 (0.0-0.1) K/uL Nucleated RBC % 0.0 /100WBC Nucleated RBCs # 0 K/uL D-Dimer, Quantitative 2.09 H (0.0-0.50) mg/L FEU Sodium 139 (136-145) mmol/L Potassium 3.8 (3.5-5.1) mmol/L Chloride 99 (98-107) mmol/L Carbon Dioxide 29.6 (21.0-32.0) mmol/L BUN 16 (7.0-18.0) mg/dL Creatinine 1.1 H (0.6-1.0) mg/dL Est Cr Clr Drug Dosing 52.81 mL/min Estimated GFR (MDRD) > 60.0 ml/min Glucose 138 H (74-106) mg/dL Calcium 8.8 (8.5-10.1) mg/dL Total Bilirubin 0.7 (0.2-1.0) mg/dL Direct Bilirubin (0.0-0.5) mg/dL AST 110 H (15-37) IU/L ALT 77 H (14-63) IU/L Alkaline Phosphatase 148 H (46-116) U/L Troponin I < 0.050 (0.000-0.056) ng/mL Total Protein 7.3 (6.4-8.2) g/dL Albumin 2.9 L (3.4-5.0) g/dL Globulin 4.4 H (2.6-4.0) g/dL Albumin/Globulin Ratio 0.7 L (0.9-1.6) Urine Color Urine Appearance Urine pH (5.0-8.0) Ur Specific [place] (1.001-1.035) Urine Protein (NEGATIVE) mg/dL Urine Glucose (UA) (NEGATIVE) mg/dL Urine Ketones (NEGATIVE) mg/dL Urine Occult Blood (NEGATIVE) Urine Nitrite (NEGATIVE) Urine Bilirubin (NEGATIVE) Urine Urobilinogen (<2.0) EU/dL Ur Leukocyte Esterase (NEGATIVE) Urine RBC (0-2/HPF) Urine WBC (0-5/HPF) Ur Epithelial Cells (NONE-FEW) Urine Bacteria (NEGATIVE) SARS-CoV-2 RNA (ENRIQUE) (NEGATIVE) 02/11/21 02/11/21 02/12/21 Range/Units 12:00 21:00 05:56 WBC 5.80 (4.0-11.0) K/uL RBC 4.41 (4.30-5.90) M/uL Hgb 13.0 (12.0-16.0) g/dL Hct 38.8 (36.0-46.0) % MCV 88.0 (80.0-98.0) fL MCH 29.5 (27.0-32.0) pg MCHC 33.5 (31.0-37.0) g/dL RDW Std Deviation 47.6 (28.0-62.0) fl RDW Coeff of Girish 15 (11.0-15.0) % Plt Count 427 H (150-400) K/uL MPV 10.30 (7.40-12.00) fL Neut % (Auto) 76.1 (48.0-80.0) % Lymph % (Auto) 15.9 L (16.0-40.0) % Winkler % (Auto) 7.8 (0.0-15.0) % Eos % (Auto) 0.0 (0.0-7.0) % Baso % (Auto) 0.2 (0.0-1.5) % Neut # (Auto) 4.4 (1.4-5.7) K/uL Lymph # (Auto) 0.9 (0.6-2.4) K/uL [place]ink[place] # (Auto) 0.5 (0.0-0.8) K/uL Eos # (Auto) 0.0 (0.0-0.7) K/uL Baso # (Auto) 0.0 (0.0-0.1) K/uL Nucleated RBC % 0.0 /100WBC Nucleated RBCs # 0 K/uL D-Dimer, Quantitative (0.0-0.50) mg/L FEU Sodium (136-145) mmol/L Potassium (3.5-5.1) mmol/L Chloride (98-107) mmol/L Carbon Dioxide (21.0-32.0) mmol/L BUN (7.0-18.0) mg/dL Creatinine (0.6-1.0) mg/dL Est Cr Clr Drug Dosing mL/min Estimated GFR (MDRD) ml/min Glucose (74-106) mg/dL Calcium (8.5-10.1) mg/dL Total Bilirubin (0.2-1.0) mg/dL Direct Bilirubin (0.0-0.5) mg/dL AST (15-37) IU/L ALT (14-63) IU/L Alkaline Phosphatase (46-116) U/L Troponin I (0.000-0.056) ng/mL Total Protein (6.4-8.2) g/dL Albumin (3.4-5.0) g/dL Globulin (2.6-4.0) g/dL Albumin/Globulin Ratio (0.9-1.6) Urine Color ORANGE Urine Appearance CLEAR Urine pH 5.5 (5.0-8.0) Ur Specific [place] 1.010 (1.001-1.035) Urine Protein 30 H (NEGATIVE) mg/dL Urine Glucose (UA) NEGATIVE (NEGATIVE) mg/dL Urine Ketones TRACE H (NEGATIVE) mg/dL Urine Occult Blood TRACE-INTACT H (NEGATIVE) Urine Nitrite NEGATIVE (NEGATIVE) Urine Bilirubin NEGATIVE (NEGATIVE) Urine Urobilinogen 2.0 H (<2.0) EU/dL Ur Leukocyte Esterase NEGATIVE (NEGATIVE) Urine RBC 0-2 (0-2/HPF) Urine WBC 0-2 (0-5/HPF) Ur Epithelial Cells RARE (NONE-FEW) Urine Bacteria FEW (NEGATIVE) SARS-CoV-2 RNA (ENRIQUE) POSITIVE H (NEGATIVE) 02/12/21 Range/Units 05:56 WBC (4.0-11.0) K/uL RBC (4.30-5.90) M/uL Hgb (12.0-16.0) g/dL Hct (36.0-46.0) % MCV (80.0-98.0) fL MCH (27.0-32.0) pg MCHC (31.0-37.0) g/dL RDW Std Deviation (28.0-62.0) fl RDW Coeff of Girish (11.0-15.0) % Plt Count (150-400) K/uL MPV (7.40-12.00) fL Neut % (Auto) (48.0-80.0) % Lymph % (Auto) (16.0-40.0) % Winkler % (Auto) (0.0-15.0) % Eos % (Auto) (0.0-7.0) % Baso % (Auto) (0.0-1.5) % Neut # (Auto) (1.4-5.7) K/uL Lymph # (Auto) (0.6-2.4) K/uL [place]ink[place] # (Auto) (0.0-0.8) K/uL Eos # (Auto) (0.0-0.7) K/uL Baso # (Auto) (0.0-0.1) K/uL Nucleated RBC % /100WBC Nucleated RBCs # K/uL D-Dimer, Quantitative (0.0-0.50) mg/L FEU Sodium 142 (136-145) mmol/L Potassium 4.4 (3.5-5.1) mmol/L Chloride 103 (98-107) mmol/L Carbon Dioxide 29.8 (21.0-32.0) mmol/L BUN 18 (7.0-18.0) mg/dL Creatinine 0.7 (0.6-1.0) mg/dL Est Cr Clr Drug Dosing 82.98 mL/min Estimated GFR (MDRD) > 60.0 ml/min Glucose 115 H (74-106) mg/dL Calcium 8.8 (8.5-10.1) mg/dL Total Bilirubin 0.5 (0.2-1.0) mg/dL Direct Bilirubin 0.20 (0.0-0.5) mg/dL AST 85 H (15-37) IU/L ALT 68 H (14-63) IU/L Alkaline Phosphatase 131 H (46-116) U/L Troponin I (0.000-0.056) ng/mL Total Protein 6.5 (6.4-8.2) g/dL Albumin 2.5 L (3.4-5.0) g/dL Globulin 4.0 (2.6-4.0) g/dL Albumin/Globulin Ratio 0.6 L (0.9-1.6) Urine Color Urine Appearance Urine pH (5.0-8.0) Ur Specific [place] (1.001-1.035) Urine Protein (NEGATIVE) mg/dL Urine Glucose (UA) (NEGATIVE) mg/dL Urine Ketones (NEGATIVE) mg/dL Urine Occult Blood (NEGATIVE) Urine Nitrite (NEGATIVE) Urine Bilirubin (NEGATIVE) Urine Urobilinogen (<2.0) EU/dL Ur Leukocyte Esterase (NEGATIVE) Urine RBC (0-2/HPF) Urine WBC (0-5/HPF) Ur Epithelial Cells (NONE-FEW) Urine Bacteria (NEGATIVE) SARS-CoV-2 RNA (ENRIQUE) (NEGATIVE) Result Diagrams: 02/12/21 05:56 02/12/21 05:56 Sepsis Event Note - Evaluation Sepsis Screening Result: No Definite Risk - Focused Exam Vital Signs: Vital Signs Temp Pulse Resp BP Pulse Ox 02/12/21 08:00 96.8 F L 82 24 H 104/59 L 97 02/12/21 04:00 97.2 F 88 20 105/68 96 - Problem List & Annotations (1) History of DVT (deep vein thrombosis) SNOMED Code(s): 118222921 Code(s): Z86.718 - PERSONAL HISTORY OF OTHER VENOUS THROMBOSIS AND EMBOLISM Status: Acute Current Visit: Yes (2) Pneumonia due to COVID-19 virus SNOMED Code(s): 828395845478027791 Code(s): U07.1 - COVID-19; J12.82 - PNEUMONIA DUE TO CORONAVIRUS DISEASE 2019 Status: Acute Current Visit: Yes - Problem List Review Problem List Initiated/Reviewed/Updated: Yes - My Orders Last 24 Hours: My Active Orders 02/11/21 15:43 Ambulate [RC] ASDIRECTED Acetaminophen [TylenoL] 650 mg PO Q6H PRN Albuterol/Ipratropium [DuoNeb 3.0-0.5 MG/3 ML] 3 ml NEB Q4HRRT PRN Ondansetron [Zofran] 4 mg IVPUSH Q4H PRN Resuscitation Status Routine 02/11/21 15:44 Oxygen Therapy [RC] PRN VTE/DVT Education [RC] PER UNIT ROUTINE Vital Signs [RC] Q4H 02/11/21 15:47 Sequential Compression Device [OM.PC] Per Unit Routine 02/11/21 15:48 Antiembolic Devices [RC] PER UNIT ROUTINE 02/11/21 15:51 RT Aerosol Therapy [RC] ASDIRECTED 02/11/21 15:54 Cardiac Monitoring [RC] . DIRECTED Positioning, Patient [RC] ASDIRECTED RT Incentive Spirometry [RC] ASDIRECTED Isolation [COMM] Stat 02/11/21 Dinner Heart Healthy Diet [DIET] 02/11/21 18:00 Albuterol/Ipratropium [Combivent Respimat] See Dose Instructions INH QID 02/11/21 21:00 Enoxaparin [Lovenox] 40 mg SUBCUT Q12HR 02/12/21 09:00 Pantoprazole [ProTONIX IV] 40 mg Sodium Chloride 0.9% [Normal Saline] 10 ml IV DAILY dexAMETHasone [Decadron] 6 mg IVPUSH DAILY 02/12/21 15:30 Remdesivir 100 mg Sodium Chloride 0.9% [Normal Saline] 100 ml IV Q24H 02/13/21 05:11 BILIRUBIN DIRECT [CHEM] DAILY CBC WITH AUTO DIFF [HEME] DAILY COMPREHENSIVE METABOLIC PN,CMP [CHEM] DAILY 02/14/21 05:11 BILIRUBIN DIRECT [CHEM] DAILY CBC WITH AUTO DIFF [HEME] DAILY COMPREHENSIVE METABOLIC PN,CMP [CHEM] DAILY 02/15/21 05:11 BILIRUBIN DIRECT [CHEM] DAILY CBC WITH AUTO DIFF [HEME] DAILY COMPREHENSIVE METABOLIC PN,CMP [CHEM] DAILY 02/16/21 05:11 CBC WITH AUTO DIFF [HEME] DAILY COMPREHENSIVE METABOLIC PN,CMP [CHEM] DAILY 02/17/21 05:11 CBC WITH AUTO DIFF [HEME] DAILY COMPREHENSIVE METABOLIC PN,CMP [CHEM] DAILY 02/18/21 05:11 CBC WITH AUTO DIFF [HEME] DAILY COMPREHENSIVE METABOLIC PN,CMP [CHEM] DAILY - Plan Plan:: Covid pneumonia: -We will add Alisha Dawkins. -Acetaminophen 650 mg po q4hr prn -DuoNebs q4hr prn -Combivent q4hr -Dexamethasone 6 mg daily -Dextromethorphan/guaifenesin q4hr prn -Lovenox 40 mg bid for intermediate anticoagulation -Zofran 4 mg q4hr prn -Pantoprazole 40 mg daily -Remdesivir:100 mg daily beginning 02/12/2021 x 4doses. -Supplement oxygen as needed. Incentive spirometry. Prone positioning.
[2021-02-12] MEDS: Benzonatate 100 MG Cap PO SCH ×3 (12:41→21:21)
[2021-02-12] MEDS ORDERED: REMDESIVIR 100 MG in Sodium Chloride 0.9% 100 ML IV SCH (15:30)
[2021-02-13] MEDS: Albuterol/Ipratropium 4 GM Inhalation Spray INH SCH ×4 (06:13→23:46)
[2021-02-13] MEDS: Benzonatate 100 MG Cap PO SCH (06:13)
[2021-02-13 06:53] LABS: BLOOD UREA NITROGEN,BUN 26 mg/dL (7.0-18.0); CARBON DIOXIDE,CO2 27.8 mmol/L (21.0-32.0); CHLORIDE,CL 108 mmol/L (98-107); GLUCOSE RANDOM 111 mg/dL (74-106); POTASSIUM,K 4.1 mmol/L (3.5-5.1); SODIUM,NA 146 mmol/L (136-145)
[2021-02-13] MEDS ORDERED: REMDESIVIR 100 MG in Sodium Chloride 0.9% 100 ML IV SCH (07:08)
--- NOTE | 2021-02-13 08:45 | PCM.DCSUM1 ---
Discharge Summary - Hospital Course Free Text/Narrative:: 65-year-old female with a history of provoked DVT was sent to the ER by her PCP for an 89% oxygen saturation. In the ER the patient presented with dyspnea and O2 saturation of 95% on room air. With standing or ambulation patient desaturated to 86%. Patient complained of fatigue and worsening shortness of breath. She had a positive Covid test 10 days prior to admission. Patient stated she had become progressively more short of breath. Patient has a non productive cough which worsened. Patient denies fever, chills, abdominal pain, diarrhea vomiting, chest pain, palpitations or changes in taste or smell. Patient denies changes in appetite. Patient was admitted for Covid pneumonia. As per patient, in 2013 or 2014 patient injured her foot requiring surgery and later developed a DVT. Patient is currently not anticoagulated. Patient also has a history of hypertension and hypercholesterolemia for which she takes hydrochlorothiazide and a statin. In the hospital patient the patient's clinical status improved quickly. She was on nasal cannula for a short duration. She received dexamethasone, remdesivir, and intermediate anticoagulation. CXR showed Covid pneumonia bilaterally. 0.0. CT angio is suboptimal for embolism. Bilateral: Pneumonia. Multiple presumed cysts in the liver with recommended follow-up contrast CT ultrasound. Incomplete visualization of complex cystic lesion right kidney recommendation for ultrasound or contrast CT. EKG: Sinus tachycardia, pulse 122, no acute ischemic injury. WBC 7, Hgb 14, platelet 386, D-dimer 2.09, sodium 139, potassium 3.8, chloride 99, bicarb 29.6, BUN 16, creatinine 1.1, glucose 138, calcium 8.8, AST 110, ALT 77, alk phos 148, Patient on room air and did not require oxygen with ambulation. Patient stable and discharged on albuterol rescue inhaler and guaifenesin for cough. Patient follow-up with PCP regarding incidental finding of liver cysts on CT scan complex cystic lesion found in the right kidney. - Discharge Data Discharge Date: 02/14/21 Discharge Disposition: Home, Self-Care 01 Condition: Stable - Referral to Home Health Primary Care Physician: PCP None - Discharge Diagnosis/Problem(s) (1) History of DVT (deep vein thrombosis) SNOMED Code(s): 452690059 ICD Code: Z86.718 - PERSONAL HISTORY OF OTHER VENOUS THROMBOSIS AND EMBOLISM Status: Acute Current Visit: Yes (2) Pneumonia due to COVID-19 virus SNOMED Code(s): 925662306105398044 ICD Code: U07.1 - COVID-19; J12.82 - PNEUMONIA DUE TO CORONAVIRUS DISEASE 2019 Status: Acute Current Visit: Yes - Patient Instructions Diet: Usual Diet as Tolerated Activity: As Tolerated Notify Provider of: Fever Other/Special Instructions: You were admitted for worsening Covid pneumonia requiring oxygen. If you experience sudden worsening of shortness of breath, fever chest pain, palpitations, or loss of consciousness please seek medical attention immediately. As discussed, because you are getting over an infection your fatigue and being tired may take some time to improve. You have been send a prescription for cough syrup which you can take every 4-6 hours as needed. You have been given a prescription for an inhaler which is to be used when you experience shortness of breath, every 2 hours on an as-needed basis. CDC recommends you quarantine for a total of 20 days since the day of symptom onset. - Discharge Plan *PRESCRIPTION DRUG MONITORING PROGRAM REVIEWED*: Not Applicable *COPY OF PRESCRIPTION DRUG MONITORING REPORT IN PATIENT TACHO: Not Applicable Prescriptions/Med Rec: Albuterol Sulfate [Albuterol Sulfate HFA] 8.5 gm INH Q2H PRN #1 ea PRN Reason: Shortness Of Breath guaiFENesin [Robitussin] 200 mg PO Q6HR PRN #1 bottle PRN Reason: Cough Home Medications: Home Meds RX: Pravastatin [Pravachol] 20 mg PO DAILY 02/11/21 [History] RX: hydroCHLOROthiazide [Hydrochlorothiazide] 25 mg PO DAILY 02/11/21 [History] Albuterol Sulfate [Albuterol Sulfate HFA] 8.5 gm INH Q2H PRN #1 ea 02/13/21 [Rx] guaiFENesin [Robitussin] 200 mg PO Q6HR PRN #1 bottle 02/13/21 [Rx] Oxygen Therapy Mode: Room Air Patient Handouts: Hypoxia, COVID-19 Frequently Asked Questions, COVID-19, COVID-19 Vaccine Information, COVID-19: How to Protect Yourself and Others - [facility] Referrals: Gretel Tobar DO [Ordering Only Provider] - 02/25/21 10:00 am - Discharge Summary/Plan Comment DC Time >30 min.: Yes Total # of Minutes for Discharge Time: 45 - General Info Date of Service: 02/14/21 Admission Dx/Problem (Free Text: Admission Diagnosis/Problem Admission Diagnosis/Problem Hypoxia - Review of Systems General: Reports: Fatigue. Denies: Fever, Chills HEENT: Denies: Headaches Pulmonary: Reports: Cough. Denies: Shortness of Breath, Pleuritic Chest Pain Cardiovascular: Reports: Dyspnea on Exertion. Denies: Chest Pain, Palpitations Gastrointestinal: Denies: Abdominal Pain, Constipation, Decreased Appetite, Diarrhea, Nausea, Vomiting Genitourinary: Denies: Dysuria Musculoskeletal: Denies: Leg Pain Skin: Denies: Rash Neurological: Denies: Confusion, Dizziness, Headache, Numbness, Paresthesia, Syncope, Tingling - Patient Data Vitals - Most Recent: Last Vital Signs Temp 97.6 F 02/13/21 04:00 Pulse 79 02/13/21 04:00 Resp 17 02/13/21 04:00 BP 104/50 L 02/13/21 04:00 Pulse Ox 96 02/13/21 04:00 Weight - Most Recent: 223 lb 1.725 oz I&O - Last 24 hours: Intake & Output 02/12/21 02/13/21 02/13/21 22:59 06:59 14:59 Intake Total 600 240 Output Total 300 200 Balance 300 40 Lab Results - Last 24 hrs: Laboratory Results - last 24 hr 02/13/21 02/13/21 Range/Units 05:40 05:40 WBC 11.34 H (4.0-11.0) K/uL RBC 4.31 (4.30-5.90) M/uL Hgb 12.6 (12.0-16.0) g/dL Hct 38.0 (36.0-46.0) % MCV 88.2 (80.0-98.0) fL MCH 29.2 (27.0-32.0) pg MCHC 33.2 (31.0-37.0) g/dL RDW Std Deviation 47.5 (28.0-62.0) fl RDW Coeff of Girish 15 (11.0-15.0) % Plt Count 540 H (150-400) K/uL MPV 10.20 (7.40-12.00) fL Neut % (Auto) 82.0 H (48.0-80.0) % Lymph % (Auto) 10.6 L (16.0-40.0) % [place] % (Auto) 7.1 (0.0-15.0) % Eos % (Auto) 0.1 (0.0-7.0) % Baso % (Auto) 0.2 (0.0-1.5) % Neut # (Auto) 9.3 H (1.4-5.7) K/uL Lymph # (Auto) 1.2 (0.6-2.4) K/uL [place] # (Auto) 0.8 (0.0-0.8) K/uL Eos # (Auto) 0.0 (0.0-0.7) K/uL Baso # (Auto) 0.0 (0.0-0.1) K/uL Nucleated RBC % 0.0 /100WBC Nucleated RBCs # 0 K/uL Sodium 146 H (136-145) mmol/L Potassium 4.1 (3.5-5.1) mmol/L Chloride 108 H (98-107) mmol/L Carbon Dioxide 27.8 (21.0-32.0) mmol/L BUN 26 H (7.0-18.0) mg/dL Creatinine 0.9 (0.6-1.0) mg/dL Est Cr Clr Drug Dosing 64.54 mL/min Estimated GFR (MDRD) > 60.0 ml/min Glucose 111 H (74-106) mg/dL Calcium 8.9 (8.5-10.1) mg/dL Total Bilirubin 0.4 (0.2-1.0) mg/dL Direct Bilirubin 0.20 (0.0-0.5) mg/dL AST 55 H (15-37) IU/L ALT 55 (14-63) IU/L Alkaline Phosphatase 117 H (46-116) U/L Total Protein 6.3 L (6.4-8.2) g/dL Albumin 2.5 L (3.4-5.0) g/dL Globulin 3.8 (2.6-4.0) g/dL Albumin/Globulin Ratio 0.7 L (0.9-1.6) Med Orders - Current: Current Medications Acetaminophen (Acetaminophen 325 Mg Tab) 650 mg PO Q6H PRN PRN Reason: Pain (Mild 1-3)/fever Albuterol/Ipratropium (Albuterol/Ipratropium 3.0-0.5 Mg/3 Ml Neb Soln) 3 ml NEB Q4HRRT PRN PRN Reason: Shortness Of Breath/wheezing Albuterol/Ipratropium (Albuterol/Ipratropium 4 Gm Inhalation [place]) 0 gm INH QID [facility] Last Admin: 02/13/21 06:13 Dose: 1 puff Documented by: Benzonatate (Benzonatate 100 Mg Cap) 200 mg PO TID [facility] Last Admin: 02/13/21 06:13 Dose: 200 mg Documented by: Dexamethasone (Dexamethasone 10 Mg/Ml Sdv) 6 mg IVPUSH DAILY [facility] Stop: 02/21/21 09:01 Last Admin: 02/12/21 08:37 Dose: 6 mg Documented by: Enoxaparin Sodium (Enoxaparin 40 Mg/0.4 Ml Syringe) 40 mg SUBCUT Q12HR [facility] Last Admin: 02/12/21 21:21 Dose: 40 mg Documented by: Pantoprazole Sodium 40 mg/ (Sodium Chloride) 10 mls @ 300 mls/hr IV DAILY [facility] Last Admin: 02/12/21 08:35 Dose: 300 mls/hr Documented by: Remdesivir 100 mg/ Sodium (Chloride) 100 mls @ 100 mls/hr IV Q24H [facility] Stop: 02/15/21 14:59 Ondansetron HCl (Ondansetron 4 Mg/2 Ml Sdv) 4 mg IVPUSH Q4H PRN PRN Reason: Nausea/Vomiting Discontinued Medications Dexamethasone (Dexamethasone 4 Mg/Ml Sdv) 6 mg IVPUSH ONETIME ONE Stop: 02/11/21 15:06 Last Admin: 02/11/21 15:32 Dose: 6 mg Documented by: Remdesivir 200 mg/ Sodium (Chloride) 250 mls @ 250 mls/hr IV ONETIME ONE Stop: 02/11/21 15:05 Last Admin: 02/11/21 15:34 Dose: Not Given Documented by: Remdesivir 200 mg/ Sodium (Chloride) 250 mls @ 250 mls/hr IV ONETIME ONE Stop: 02/11/21 16:29 Last Admin: 02/11/21 15:34 Dose: 250 mls/hr Documented by: Remdesivir 100 mg/ Sodium (Chloride) 100 mls @ 100 mls/hr IV Q24H [facility] Stop: 02/15/21 16:29 Last Admin: 02/12/21 15:47 Dose: 100 mls/hr Documented by: Remdesivir 100 mg/ Sodium (Chloride) 100 mls @ 100 mls/hr IV Q24H [facility] Stop: 02/15/21 16:29 Iopamidol (Iopamidol 755 Mg/Ml 500 Ml Multipack Bottle) 100 ml IVPUSH ONETIME [facility] Stop: 02/11/21 14:11 Last Admin: 02/11/21 14:10 Dose: 100 ml Documented by: - Exam General: Reports: Alert, Oriented, Cooperative, No Acute Distress HEENT: Reports: Pupils Equal, Pupils Reactive Neck: Reports: Supple, Trachea Midline Lungs: Reports: Clear to Auscultation, Normal Respiratory Effort, Other (Cough with deep inspiration.) Cardiovascular: Reports: Regular Rate, Regular Rhythm GI/Abdominal Exam: Normal Bowel Sounds, Soft, Non-Tender, No Distention Back Exam: Reports: Normal Inspection. Denies: CVA Tenderness (L), CVA Tenderness (R) Extremities: Normal Inspection, Normal Range of Motion, Non-Tender, No Pedal Edema. No: Dameon's Sign Skin: Reports: Warm, Dry, Intact Neurological: Reports: No New Focal Deficit
[2021-02-13] MEDS: Dexamethasone 10 MG/ML SDV IVPUSH SCH (09:48)
[2021-02-13] MEDS: Pantoprazole 40 MG in Sodium Chloride 0.9% 10 ML IV SCH (09:52)
[2021-02-13] MEDS: REMDESIVIR 100 MG in Sodium Chloride 0.9% 100 ML IV SCH (10:05)
[2021-02-13] MEDS: Enoxaparin 40 MG/0.4 ML Syringe SUBCUT SCH ×2 (10:06→20:55)
--- NOTE | 2021-02-13 11:09 | PCM.PN ---
- General Info Date of Service: 02/13/21 Admission Dx/Problem (Free Text): Admission Diagnosis/Problem Admission Diagnosis/Problem Hypoxia Subjective Update: Patient is room air but endorses severe fatigue and nonproductive cough. Patient encouraged to walk in the room today. Patient denies abdominal pain, chest pain, palpitations, dizziness, lightheadedness, diarrhea. - Review of Systems General: Reports: Weakness, Fatigue. Denies: Fever, Chills HEENT: Denies: Headaches Pulmonary: Reports: Shortness of Breath, Cough. Denies: Pleuritic Chest Pain Cardiovascular: Reports: Dyspnea on Exertion. Denies: Chest Pain, Palpitations Gastrointestinal: Denies: Abdominal Pain, Constipation, Diarrhea, Nausea, Vomiting Genitourinary: Denies: Dysuria Musculoskeletal: Denies: Leg Pain Skin: Denies: Rash Neurological: Denies: Confusion, Dizziness, Headache, Numbness, Paresthesia Psychiatric: Denies: Confusion, Anxiety - Patient Data Vitals - Most Recent: Last Vital Signs Temp 97.1 F 02/13/21 08:00 Pulse 98 02/13/21 08:00 Resp 16 02/13/21 08:00 BP 117/89 02/13/21 08:00 Pulse Ox 96 02/13/21 08:00 Weight - Most Recent: 223 lb 1.725 oz I&O - Last 24 Hours: Intake & Output 02/12/21 02/13/21 02/13/21 22:59 06:59 14:59 Intake Total 600 240 Output Total 300 200 Balance 300 40 Lab Results Last 24 Hours: Laboratory Results - last 24 hr 02/13/21 02/13/21 Range/Units 05:40 05:40 WBC 11.34 H (4.0-11.0) K/uL RBC 4.31 (4.30-5.90) M/uL Hgb 12.6 (12.0-16.0) g/dL Hct 38.0 (36.0-46.0) % MCV 88.2 (80.0-98.0) fL MCH 29.2 (27.0-32.0) pg MCHC 33.2 (31.0-37.0) g/dL RDW Std Deviation 47.5 (28.0-62.0) fl RDW Coeff of Girish 15 (11.0-15.0) % Plt Count 540 H (150-400) K/uL MPV 10.20 (7.40-12.00) fL Neut % (Auto) 82.0 H (48.0-80.0) % Lymph % (Auto) 10.6 L (16.0-40.0) % [place] % (Auto) 7.1 (0.0-15.0) % Eos % (Auto) 0.1 (0.0-7.0) % Baso % (Auto) 0.2 (0.0-1.5) % Neut # (Auto) 9.3 H (1.4-5.7) K/uL Lymph # (Auto) 1.2 (0.6-2.4) K/uL [place] # (Auto) 0.8 (0.0-0.8) K/uL Eos # (Auto) 0.0 (0.0-0.7) K/uL Baso # (Auto) 0.0 (0.0-0.1) K/uL Nucleated RBC % 0.0 /100WBC Nucleated RBCs # 0 K/uL Sodium 146 H (136-145) mmol/L Potassium 4.1 (3.5-5.1) mmol/L Chloride 108 H (98-107) mmol/L Carbon Dioxide 27.8 (21.0-32.0) mmol/L BUN 26 H (7.0-18.0) mg/dL Creatinine 0.9 (0.6-1.0) mg/dL Est Cr Clr Drug Dosing 64.54 mL/min Estimated GFR (MDRD) > 60.0 ml/min Glucose 111 H (74-106) mg/dL Calcium 8.9 (8.5-10.1) mg/dL Total Bilirubin 0.4 (0.2-1.0) mg/dL Direct Bilirubin 0.20 (0.0-0.5) mg/dL AST 55 H (15-37) IU/L ALT 55 (14-63) IU/L Alkaline Phosphatase 117 H (46-116) U/L Total Protein 6.3 L (6.4-8.2) g/dL Albumin 2.5 L (3.4-5.0) g/dL Globulin 3.8 (2.6-4.0) g/dL Albumin/Globulin Ratio 0.7 L (0.9-1.6) Med Orders - Current: Current Medications Acetaminophen (Acetaminophen 325 Mg Tab) 650 mg PO Q6H PRN PRN Reason: Pain (Mild 1-3)/fever Albuterol/Ipratropium (Albuterol/Ipratropium 3.0-0.5 Mg/3 Ml Neb Soln) 3 ml NEB Q4HRRT PRN PRN Reason: Shortness Of Breath/wheezing Albuterol/Ipratropium (Albuterol/Ipratropium 4 Gm Inhalation [place]) 0 gm INH QID [facility] Last Admin: 02/13/21 06:13 Dose: 1 puff Documented by: Benzonatate (Benzonatate 100 Mg Cap) 200 mg PO TID [facility] Last Admin: 02/13/21 06:13 Dose: 200 mg Documented by: Dexamethasone (Dexamethasone 10 Mg/Ml Sdv) 6 mg IVPUSH DAILY [facility] Stop: 02/21/21 09:01 Last Admin: 02/13/21 09:48 Dose: 6 mg Documented by: Enoxaparin Sodium (Enoxaparin 40 Mg/0.4 Ml Syringe) 40 mg SUBCUT Q12HR [facility] Last Admin: 02/13/21 10:06 Dose: 40 mg Documented by: Pantoprazole Sodium 40 mg/ (Sodium Chloride) 10 mls @ 300 mls/hr IV DAILY [facility] Last Admin: 02/13/21 09:52 Dose: 300 mls/hr Documented by: Remdesivir 100 mg/ Sodium (Chloride) 100 mls @ 100 mls/hr IV Q24H [facility] Stop: 02/15/21 09:59 Last Admin: 02/13/21 10:05 Dose: 100 mls/hr Documented by: Ondansetron HCl (Ondansetron 4 Mg/2 Ml Sdv) 4 mg IVPUSH Q4H PRN PRN Reason: Nausea/Vomiting Discontinued Medications Dexamethasone (Dexamethasone 4 Mg/Ml Sdv) 6 mg IVPUSH ONETIME ONE Stop: 02/11/21 15:06 Last Admin: 02/11/21 15:32 Dose: 6 mg Documented by: Remdesivir 200 mg/ Sodium (Chloride) 250 mls @ 250 mls/hr IV ONETIME ONE Stop: 02/11/21 15:05 Last Admin: 02/11/21 15:34 Dose: Not Given Documented by: Remdesivir 200 mg/ Sodium (Chloride) 250 mls @ 250 mls/hr IV ONETIME ONE Stop: 02/11/21 16:29 Last Admin: 02/11/21 15:34 Dose: 250 mls/hr Documented by: Remdesivir 100 mg/ Sodium (Chloride) 100 mls @ 100 mls/hr IV Q24H [facility] Stop: 02/15/21 16:29 Last Admin: 02/12/21 15:47 Dose: 100 mls/hr Documented by: Remdesivir 100 mg/ Sodium (Chloride) 100 mls @ 100 mls/hr IV Q24H [facility] Stop: 02/15/21 16:29 Iopamidol (Iopamidol 755 Mg/Ml 500 Ml Multipack Bottle) 100 ml IVPUSH ONETIME [facility] Stop: 02/11/21 14:11 Last Admin: 02/11/21 14:10 Dose: 100 ml Documented by: - Exam General: Alert, Oriented, Cooperative, No Acute Distress HEENT: Pupils Equal, Pupils Reactive Neck: Supple, Trachea Midline Lungs: Normal Respiratory Effort, Decreased Breath Sounds Cardiovascular: Regular Rate, Regular Rhythm, No Murmurs GI/Abdominal Exam: Normal Bowel Sounds, Soft, Non-Tender Extremities: Normal Inspection, Normal Range of Motion, Non-Tender, No Pedal Ed steve. No: Dameon's Sign Peripheral Pulses: 2+: Dorsalis Pedis (L), Dorsalis Pedis (R) Skin: Warm, Dry, Intact Neurological: No New Focal Deficit - Patient Data Lab Results Last 24 hrs: Laboratory Results - last 24 hr 02/13/21 02/13/21 Range/Units 05:40 05:40 WBC 11.34 H (4.0-11.0) K/uL RBC 4.31 (4.30-5.90) M/uL Hgb 12.6 (12.0-16.0) g/dL Hct 38.0 (36.0-46.0) % MCV 88.2 (80.0-98.0) fL MCH 29.2 (27.0-32.0) pg MCHC 33.2 (31.0-37.0) g/dL RDW Std Deviation 47.5 (28.0-62.0) fl RDW Coeff of Girish 15 (11.0-15.0) % Plt Count 540 H (150-400) K/uL MPV 10.20 (7.40-12.00) fL Neut % (Auto) 82.0 H (48.0-80.0) % Lymph % (Auto) 10.6 L (16.0-40.0) % [place] % (Auto) 7.1 (0.0-15.0) % Eos % (Auto) 0.1 (0.0-7.0) % Baso % (Auto) 0.2 (0.0-1.5) % Neut # (Auto) 9.3 H (1.4-5.7) K/uL Lymph # (Auto) 1.2 (0.6-2.4) K/uL [place] # (Auto) 0.8 (0.0-0.8) K/uL Eos # (Auto) 0.0 (0.0-0.7) K/uL Baso # (Auto) 0.0 (0.0-0.1) K/uL Nucleated RBC % 0.0 /100WBC Nucleated RBCs # 0 K/uL Sodium 146 H (136-145) mmol/L Potassium 4.1 (3.5-5.1) mmol/L Chloride 108 H (98-107) mmol/L Carbon Dioxide 27.8 (21.0-32.0) mmol/L BUN 26 H (7.0-18.0) mg/dL Creatinine 0.9 (0.6-1.0) mg/dL Est Cr Clr Drug Dosing 64.54 mL/min Estimated GFR (MDRD) > 60.0 ml/min Glucose 111 H (74-106) mg/dL Calcium 8.9 (8.5-10.1) mg/dL Total Bilirubin 0.4 (0.2-1.0) mg/dL Direct Bilirubin 0.20 (0.0-0.5) mg/dL AST 55 H (15-37) IU/L ALT 55 (14-63) IU/L Alkaline Phosphatase 117 H (46-116) U/L Total Protein 6.3 L (6.4-8.2) g/dL Albumin 2.5 L (3.4-5.0) g/dL Globulin 3.8 (2.6-4.0) g/dL Albumin/Globulin Ratio 0.7 L (0.9-1.6) Result Diagrams: 02/13/21 05:40 02/13/21 05:40 Sepsis Event Note - Evaluation Sepsis Screening Result: No Definite Risk - Focused Exam Vital Signs: Vital Signs Temp Pulse Resp BP Pulse Ox 02/13/21 08:00 97.1 F 98 16 117/89 96 02/13/21 04:00 97.6 F 79 17 104/50 L 96 02/12/21 23:20 96.9 F 92 18 104/64 95 - Problem List & Annotations (1) History of DVT (deep vein thrombosis) SNOMED Code(s): 175126745 Code(s): Z86.718 - PERSONAL HISTORY OF OTHER VENOUS THROMBOSIS AND EMBOLISM Status: Acute Current Visit: Yes (2) Pneumonia due to COVID-19 virus SNOMED Code(s): 262452382688414775 Code(s): U07.1 - COVID-19; J12.82 - PNEUMONIA DUE TO CORONAVIRUS DISEASE 2019 Status: Acute Current Visit: Yes - Problem List Review Problem List Initiated/Reviewed/Updated: Yes - My Orders Last 24 Hours: My Active Orders 02/12/21 12:04 Benzonatate [Tessalon Perles] 200 mg PO TID 02/13/21 08:22 Evaluate for Home Oxygen [RT Evaluate for Home Oxygen] [RC] Click to Edit 02/13/21 09:00 Remdesivir 100 mg Sodium Chloride 0.9% [Normal Saline AdvBag] 100 ml IV Q24H 02/14/21 05:11 BILIRUBIN DIRECT [CHEM] DAILY CBC WITH AUTO DIFF [HEME] DAILY COMPREHENSIVE METABOLIC PN,CMP [CHEM] DAILY 02/15/21 05:11 BILIRUBIN DIRECT [CHEM] DAILY CBC WITH AUTO DIFF [HEME] DAILY COMPREHENSIVE METABOLIC PN,CMP [CHEM] DAILY 02/16/21 05:11 CBC WITH AUTO DIFF [HEME] DAILY COMPREHENSIVE METABOLIC PN,CMP [CHEM] DAILY 02/17/21 05:11 CBC WITH AUTO DIFF [HEME] DAILY COMPREHENSIVE METABOLIC PN,CMP [CHEM] DAILY 02/18/21 05:11 CBC WITH AUTO DIFF [HEME] DAILY COMPREHENSIVE METABOLIC PN,CMP [CHEM] DAILY - Plan Plan:: Covid pneumonia: -Encouraged oral hydration. -Tessalon Perles. -Acetaminophen 650 mg po q4hr prn -DuoNebs q4hr prn -Combivent q4hr -Dexamethasone 6 mg daily -Dextromethorphan/guaifenesin q4hr prn -Lovenox 40 mg bid for intermediate anticoagulation -Zofran 4 mg q4hr prn -Pantoprazole 40 mg daily -Remdesivir:100 mg daily. -Supplement oxygen as needed. Incentive spirometry. Prone positioning.
[2021-02-13] MEDS ORDERED: Benzonatate 100 MG Cap PO PRN (11:10)
[2021-02-14] MEDS: Albuterol/Ipratropium 4 GM Inhalation Spray INH SCH ×2 (06:30→11:42)
[2021-02-14 08:15] LABS: BLOOD UREA NITROGEN,BUN 22 mg/dL (7.0-18.0); CARBON DIOXIDE,CO2 29.1 mmol/L (21.0-32.0); CHLORIDE,CL 107 mmol/L (98-107); GLUCOSE RANDOM 93 mg/dL (74-106); POTASSIUM,K 3.4 mmol/L (3.5-5.1); SODIUM,NA 144 mmol/L (136-145)
[2021-02-14] MEDS ORDERED: Potassium Chloride 20 MEQ Tab.ER PO ONE (08:45)
[2021-02-14] MEDS: Enoxaparin 40 MG/0.4 ML Syringe SUBCUT SCH (09:49)
[2021-02-14] MEDS: Dexamethasone 10 MG/ML SDV IVPUSH SCH (09:49)
[2021-02-14] MEDS: Pantoprazole 40 MG in Sodium Chloride 0.9% 10 ML IV SCH (09:50)
[2021-02-14] MEDS: REMDESIVIR 100 MG in Sodium Chloride 0.9% 100 ML IV SCH (09:50)
== END 2021-02-14 18:10 | disposition home or self-care (01) | DRG 137 ==
LOC: MW.ED 11:30 → MW.MS 16:03
PROVIDERS: ADMIT Student in an Organized Health Care Education/Training Program; ATTEND Student in an Organized Health Care Education/Training Program
PROC: 8E0ZXY6 Isolation (ICD-10-PCS; principal; 2021-02-11)
PROC: XW033E5 Introduction of Remdesivir Anti-infective into Peripheral Vein, Percutaneous Approach, New Technology Group 5 (ICD-10-PCS; 2021-02-11)
PROC: 3E0333Z Introduction of Anti-inflammatory into Peripheral Vein, Percutaneous Approach (ICD-10-PCS; 2021-02-11)
DX: U07.1 COVID-19 (principal); J12.82 Pneumonia due to coronavirus disease 2019; I10 Essential (primary) hypertension; E78.00 Pure hypercholesterolemia, unspecified; K76.89 Other specified diseases of liver; N28.1 Cyst of kidney, acquired; Z86.718 Personal history of other venous thrombosis and embolism; Z88.6 Allergy status to analgesic agent; Z90.710 Acquired absence of both cervix and uterus
CPT/HCPCS: 36415; 71045; 71045-26; 71275; 71275-26; 80053; 81001; 82248; 84484; 85025; 85379; 93005; 94640; 96374; 99285-25; A9270-GY; C9113; J1100; J1650; J7050; Q9967; U0002

== ENCOUNTER 2024-02-03 08:09 | Day surgery (SDC) | payer BC, MEDICARE ==
[2024-02-03] MEDS: Lactated Ringers 1,000 ML IV SCH (08:35)
[2024-02-03] MEDS ORDERED: propofoL 50 ML ONE (08:37)
[2024-02-03] MEDS ORDERED: dexmedeTOMIDine HCl 200 MCG/2 ML SDV ONE (08:58)
[2024-02-03] MEDS ORDERED: Water For Injection, Sterile 20 ML ONE (08:58)
== END 2024-02-03 10:49 | disposition home or self-care (01) ==
LOC: MW.SDS 08:09
PROVIDERS: ATTEND Surgery
DX: K29.50 Unspecified chronic gastritis without bleeding (principal); K21.00 Gastro-esophageal reflux disease with esophagitis, without bleeding; R68.81 Early satiety; K22.89 Other specified disease of esophagus; K44.9 Diaphragmatic hernia without obstruction or gangrene; E78.00 Pure hypercholesterolemia, unspecified; I10 Essential (primary) hypertension; E66.9 Obesity, unspecified; Z88.8 Allergy status to other drugs, medicaments and biological substances; Z91.018 Allergy to other foods; Z68.36 Body mass index [BMI] 36.0-36.9, adult
CPT/HCPCS: 43239; 88305; 88342; J2704; J7120; 00731; J3490

== ENCOUNTER 2024-04-10 06:37 | Emergency (ER) | payer BC, MEDICARE | END 2024-04-10 07:53 | disposition home or self-care (01) | LOC: MW.ED 06:37 | DX: S63.237A Subluxation of proximal interphalangeal joint of left little finger, initial encounter (principal); I10 Essential (primary) hypertension; E78.00 Pure hypercholesterolemia, unspecified; E66.9 Obesity, unspecified; Z90.710 Acquired absence of both cervix and uterus; Z79.899 Other long term (current) drug therapy; Z91.048 Other nonmedicinal substance allergy status; Z88.5 Allergy status to narcotic agent; Z91.018 Allergy to other foods | CPT/HCPCS: 26770; 73130-26-LT; 73130-LT; 99283-25 ==

== ENCOUNTER 2024-06-19 07:06 | Emergency (ER) | payer BC, MEDICARE ==
[2024-06-19] MEDS ORDERED: Sodium Chloride 0.9% 10 ML Syringe FLUSH PRN (07:33)
[2024-06-19] MEDS: Meclizine 25 MG Tab PO ONE (07:48)
[2024-06-19] MEDS: Sodium Chloride 0.9% 1,000 ML IV ONE ×2 (07:48→09:40)
[2024-06-19 07:56] LABS: BASOPHILS ABSOLUTE AUTO 0.03 K/uL (0.00-0.20); BASOPHILS PERCENT AUTO 0.7 % (0.0-1.0); EOSINOPHILS ABSOLUTE AUTO 0.12 K/uL (0.00-0.45); EOSINOPHILS PERCENT AUTO 2.7 % (0.0-6.0); HEMATOCRIT 37.4 % (37.0-47.0); HEMOGLOBIN 12.2 g/dL (12.0-16.0); IMMATURE GRAN ABSOLUTE AUTO 0.01 K/uL (0.00-0.05); IMMATURE GRAN PERCENT AUTO 0.2 % (0.0-0.4); LYMPHOCYTES ABSOLUTE AUTO 1.48 K/uL (1.00-4.80); MEAN CORPUSCULAR HEMOGLOBIN 29.6 pg (28.0-32.0); MEAN CORPUSCULAR HGB CONC 32.6 g/dL (32.0-36.0); MEAN CORPUSCULAR VOLUME 90.8 fL (83.0-99.0); MEAN PLATELET VOLUME 9.6 fL (9.4-12.3); MONOCYTES ABSOLUTE AUTO 0.35 K/uL (0.00-0.80); MONOCYTES PERCENT AUTO 7.8 % (0.0-8.0); NEUTROPHILS PERCENT AUTO 55.6 % (41.0-71.0); PLATELET COUNT,PLT 244 K/uL (150-400); RED BLOOD CELL COUNT 4.12 M/uL (4.10-5.30); WHITE BLOOD CELL COUNT,WBC 4.49 K/uL (3.9-11.3)
[2024-06-19 08:24] LABS: A/G RATIO 0.9 (0.9-1.6); ALANINE AMINOTRANSFERASE,ALT 20 IU/L (14-63); ALBUMIN 3.1 g/dL (3.4-5.0); ALKALINE PHOSPHATASE 105 U/L (46-116); ASPARTATE AMNIOTRANSFERASE,AST 21 IU/L (15-37); BILIRUBIN TOTAL 0.5 mg/dL (0.2-1.0); BLOOD UREA NITROGEN,BUN 17 mg/dL (7.0-18.0); CARBON DIOXIDE,CO2 25.8 mmol/L (21.0-32.0); CHLORIDE,CL 107 mmol/L (98-107); CREATININE 0.7 mg/dL (0.6-1.0); ESTIMATED GFR 95 mL/min (>60); GLUCOSE RANDOM 90 mg/dL (74-106); POTASSIUM,K 4.2 mmol/L (3.5-5.1); PROTEIN TOTAL,TP 6.7 g/dL (6.4-8.2); SODIUM,NA 144 mmol/L (136-145)
== END 2024-06-19 11:12 | disposition home or self-care (01) ==
LOC: MW.ED 07:06
DX: H81.12 Benign paroxysmal vertigo, left ear (principal); J01.00 Acute maxillary sinusitis, unspecified; I10 Essential (primary) hypertension; E78.00 Pure hypercholesterolemia, unspecified; E66.9 Obesity, unspecified; Z90.710 Acquired absence of both cervix and uterus; Z88.6 Allergy status to analgesic agent; Z88.8 Allergy status to other drugs, medicaments and biological substances; Z91.018 Allergy to other foods; Z91.048 Other nonmedicinal substance allergy status; Z79.51 Long term (current) use of inhaled steroids; Z79.899 Other long term (current) drug therapy
CPT/HCPCS: 36415; 70450; 71045; 80053; 83735; 84484; 85025; 93005; 96360; 96361; 99284; A9270; J7030

== ENCOUNTER 2025-01-09 13:42 | Emergency (ER) | payer BC, MEDICARE ==
[2025-01-09] MEDS ORDERED: Sodium Chloride 0.9% 2.5 ML Syringe FLUSH PRN (14:24)
[2025-01-09] MEDS ORDERED: Sodium Chloride 0.9% 10 ML Syringe FLUSH PRN (14:24)
[2025-01-09 14:37] LABS: BASOPHILS ABSOLUTE AUTO 0.03 K/uL (0.00-0.20); BASOPHILS PERCENT AUTO 0.6 % (0.0-1.0); EOSINOPHILS ABSOLUTE AUTO 0.07 K/uL (0.00-0.45); EOSINOPHILS PERCENT AUTO 1.5 % (0.0-6.0); IMMATURE GRAN ABSOLUTE AUTO 0.01 K/uL (0.00-0.05); IMMATURE GRAN PERCENT AUTO 0.2 % (0.0-0.4); LYMPHOCYTES ABSOLUTE AUTO 1.56 K/uL (1.00-4.80); LYMPHOCYTES PERCENT AUTO 32.5 % (24.0-44.0); MEAN PLATELET VOLUME 9.6 fL (9.4-12.3); MONOCYTES ABSOLUTE AUTO 0.37 K/uL (0.00-0.80); MONOCYTES PERCENT AUTO 7.7 % (0.0-8.0); NEUTROPHILS ABSOLUTE AUTO 2.76 K/uL (1.80-7.70); NEUTROPHILS PERCENT AUTO 57.5 % (41.0-71.0); NRBC ABSOLUTE 0.00 K/uL (0.00-0.02); NRBC PERCENT 0.0 /100WBC (0.0-0.2); PLATELET COUNT,PLT 244 K/uL (150-400); RED BLOOD CELL COUNT 4.28 M/uL (4.10-5.30); WHITE BLOOD CELL COUNT,WBC 4.80 K/uL (3.9-11.3)
[2025-01-09 14:51] LABS: INR 1.02 (0.86-1.11); PTT,PARTIAL THROMBOPLSTIN TIME 25.1 SEC (23.9-30.7)
[2025-01-09 15:15] LABS: A/G RATIO 1.0 (0.9-1.6); ALANINE AMINOTRANSFERASE,ALT 21 IU/L (14-63); ASPARTATE AMNIOTRANSFERASE,AST 26 IU/L (15-37); BILIRUBIN TOTAL 0.7 mg/dL (0.2-1.0); BLOOD UREA NITROGEN,BUN 12 mg/dL (7.0-18.0); CARBON DIOXIDE,CO2 24.5 mmol/L (21.0-32.0); CHLORIDE,CL 107 mmol/L (98-107); CREATININE 0.7 mg/dL (0.6-1.0); EST CRCL DRUG DOSING (CG) 78.67 mL/min; GLUCOSE RANDOM 77 mg/dL (74-106); POTASSIUM,K 3.9 mmol/L (3.5-5.1); PRO B-TYPE NATRIUR PEPT,BNPPRO 209 pg/mL (0-125); PROTEIN TOTAL,TP 7.2 g/dL (6.4-8.2); SODIUM,NA 142 mmol/L (136-145)
[2025-01-09 15:19] LABS: ESTIMATED GFR 95 mL/min (>60)
[2025-01-09] MEDS: Ondansetron 4 MG/2 ML SDV IVPUSH ONE (16:30)
[2025-01-09] MEDS: methylPREDNISolone Sodium Succinate 125 MG/2 ML SDV IVPUSH ONE (16:30)
[2025-01-09] MEDS: Iopamidol 755 MG/ML 500 ML Multipack Bottle IVPUSH STA (16:42)
[2025-01-09] MEDS ORDERED: Naloxone 0.4 MG/ML SDV IVPUSH PRN (16:58)
== END 2025-01-09 19:28 | disposition home or self-care (01) ==
LOC: MW.ED 13:42
DX: G44.209 Tension-type headache, unspecified, not intractable (principal); I10 Essential (primary) hypertension; E78.00 Pure hypercholesterolemia, unspecified; Z88.6 Allergy status to analgesic agent; Z91.018 Allergy to other foods; Z88.8 Allergy status to other drugs, medicaments and biological substances; Z79.899 Other long term (current) drug therapy; Z79.02 Long term (current) use of antithrombotics/antiplatelets; Z86.73 Personal history of transient ischemic attack (TIA), and cerebral infarction without residual deficits; Z86.16 Personal history of COVID-19
CPT/HCPCS: 36415; 70450; 70496; 70498; 71045; 80053; 83735; 83880; 85025; 85610; 85730; 86140; 96361; 96374; 96375; 99284; J2270; J2405; J2919; J7030; Q9967

== ENCOUNTER 2025-03-12 18:12 | Emergency (ER) | payer BC, MEDICARE ==
[2025-03-12] MEDS ORDERED: LORazepam 2 MG/ML SDV IVPUSH ONE (18:41)
[2025-03-12] MEDS: Ondansetron 4 MG/2 ML SDV IVPUSH ONE (19:05)
[2025-03-12 19:20] LABS: BASOPHILS ABSOLUTE AUTO 0.04 K/uL (0.00-0.20); BASOPHILS PERCENT AUTO 0.8 % (0.0-1.0); EOSINOPHILS ABSOLUTE AUTO 0.08 K/uL (0.00-0.45); EOSINOPHILS PERCENT AUTO 1.6 % (0.0-6.0); IMMATURE GRAN ABSOLUTE AUTO 0.01 K/uL (0.00-0.05); IMMATURE GRAN PERCENT AUTO 0.2 % (0.0-0.4); LYMPHOCYTES ABSOLUTE AUTO 1.78 K/uL (1.00-4.80); LYMPHOCYTES PERCENT AUTO 36.0 % (24.0-44.0); MEAN PLATELET VOLUME 9.5 fL (9.4-12.3); MONOCYTES ABSOLUTE AUTO 0.43 K/uL (0.00-0.80); MONOCYTES PERCENT AUTO 8.7 % (0.0-8.0); NEUTROPHILS ABSOLUTE AUTO 2.61 K/uL (1.80-7.70); NEUTROPHILS PERCENT AUTO 52.7 % (41.0-71.0); NRBC ABSOLUTE 0.00 K/uL (0.00-0.02); NRBC PERCENT 0.0 /100WBC (0.0-0.2); PLATELET COUNT,PLT 233 K/uL (150-400); RED BLOOD CELL COUNT 4.14 M/uL (4.10-5.30); WHITE BLOOD CELL COUNT,WBC 4.95 K/uL (3.9-11.3)
[2025-03-12 20:02] LABS: APPEARANCE,URINE CLEAR; GLUCOSE,URINE NEGATIVE (NEGATIVE); OCCULT BLOOD,URINE TRACE-INTACT (NEGATIVE)
[2025-03-12 20:06] LABS: A/G RATIO 0.9 (0.9-1.6); ALANINE AMINOTRANSFERASE,ALT 19 IU/L (14-63); ASPARTATE AMNIOTRANSFERASE,AST 22 IU/L (15-37); BILIRUBIN TOTAL 0.4 mg/dL (0.2-1.0); BLOOD UREA NITROGEN,BUN 16 mg/dL (7.0-18.0); CARBON DIOXIDE,CO2 28.1 mmol/L (21.0-32.0); CHLORIDE,CL 103 mmol/L (98-107); CREATININE 0.8 mg/dL (0.6-1.0); EST CRCL DRUG DOSING (CG) 68.84 mL/min; GLUCOSE RANDOM 79 mg/dL (74-106); POTASSIUM,K 3.9 mmol/L (3.5-5.1); PROTEIN TOTAL,TP 7.4 g/dL (6.4-8.2); SODIUM,NA 138 mmol/L (136-145)
[2025-03-12 20:14] LABS: ESTIMATED GFR 81 mL/min (>60)
[2025-03-12 20:15] LABS: EPITHELIAL CELLS,URINE RARE (NONE-FEW)
== END 2025-03-12 20:31 | disposition home or self-care (01) ==
LOC: MW.ED 18:12
DX: G43.909 Migraine, unspecified, not intractable, without status migrainosus (principal); I10 Essential (primary) hypertension; E78.00 Pure hypercholesterolemia, unspecified; E86.0 Dehydration; E66.9 Obesity, unspecified; Z91.09 Other allergy status, other than to drugs and biological substances; Z88.8 Allergy status to other drugs, medicaments and biological substances; Z91.041 Radiographic dye allergy status; Z79.899 Other long term (current) drug therapy; Z75.3 Unavailability and inaccessibility of health-care facilities; Z90.710 Acquired absence of both cervix and uterus; Z68.36 Body mass index [BMI] 36.0-36.9, adult
CPT/HCPCS: 36415; 80053; 81001; 85025; 85652; 86140; 96361; 96374; 96375; 99284; 99284-25; J2270; J2405; J7030